=== PATIENT | male | born 1940 | race Caucasian/White ===

== ENCOUNTER → 2019-12-30 10:38 | Outpatient (BNVA) | payer MEDICARE, SELFPAY | PROVIDERS: PCP Internal Medicine; Referring Provider Internal Medicine; Visit Provider Internal Medicine Cardiovascular Disease | DX: I48.0 Paroxysmal atrial fibrillation (principal); I10 Essential (primary) hypertension | CPT/HCPCS: 93005; 99212 ==

== ENCOUNTER 2020-05-04 06:51 | Inpatient (IN) | payer MEDICARE, SELFPAY ==
[2020-05-04] VITALS (7 sets, daily range): BP systolic 110–179; BP diastolic 51–81; PULSE 67–108; RESP 16–18; TEMP 36.4–37.6; O2SAT 90–95; BMI 26.6; BMI 28.3
--- NOTE | ~2020-05-04 | XR_ITS ---
EXAMINATION: XR CHEST CLINICAL INFORMATION: sob COMPARISON: 05/04/2020 TECHNIQUE: Frontal view of the chest was obtained. FINDINGS: Prominent interstitial opacities are present in both lungs in the perihilar distribution primarily. Blunting of the left lateral costophrenic sulcus likely correspond to a trace effusion. Trace right pneumothorax. Subtle groundglass opacities are present in the perihilar regions. No appreciable right-sided pleural effusion. There is lucency underlying the right hemidiaphragm which is of uncertain etiology, possibly corresponding to pneumoperitoneum. Cardiac and mediastinal contours are normal. No acute osseous findings. XR/XR chest 1V IMPRESSION: Bilateral interstitial opacities with groundglass attenuation in the perihilar regions as can be seen with interstitial pulmonary edema. Bilateral pneumonia could also have this appearance. Trace right pneumothorax. Possible pneumoperitoneum underlying the right hemidiaphragm. Consider left lateral decubitus views of the abdomen for further assessment. This critical result was discussed by telephone with Dr. Nguyen at 05/09/2020 2:15 AM.
--- NOTE | ~2020-05-04 | XR_ITS ---
EXAMINATION: XR CHEST CLINICAL INFORMATION: Follow-up pneumothorax COMPARISON: Previous chest x-rays from earlier the same day TECHNIQUE: Frontal view of the chest was obtained. FINDINGS: There is a pigtail chest tube at the right lung apex. There is a large bore chest tube at the left lung apex. No residual pneumothorax is. There is bilateral chest wall emphysema, left greater than right. There is an endotracheal tube with tip 3 cm above the román. There is a right jugular line with tip projecting over the cavoatrial junction. There is a nasogastric tube that projects over the stomach. The tip is not seen. The cardiac and mediastinal contours are stable. There is diffuse mixed airspace and interstitial disease which appears increased from recent exams. No significant pleural effusion is seen. Bony structures are unremarkable. XR/XR chest 1V IMPRESSION: Bilateral chest tubes. No residual pneumothorax. Satisfactory position of endotracheal tube and right jugular line. Nasogastric tube projects over the proximal stomach, tip not seen. Bilateral airspace and interstitial opacities increased from previous exams.
--- NOTE | ~2020-05-04 | XR_ITS ---
EXAMINATION: XR CHEST CLINICAL INFORMATION: Post intubation COMPARISON: Same date at 1:32 AM TECHNIQUE: Frontal view of the chest was obtained. FINDINGS: ET tube terminates over the trachea 4.4 cm from the román. The right-sided pneumothorax has markedly increased in size as compared to prior. There is also a new large left pneumothorax which is not present on the prior study. Diffuse interstitial opacities are again seen in both lungs. Slight rightward shift the mediastinal contour is likely due to rotation of the patient. Tension pneumothorax is felt to be less likely but cannot be excluded on these images. Cardiac and mediastinal contours are otherwise normal. No pleural effusion. XR/XR chest 1V IMPRESSION: Marked enlargement of the right pneumothorax as compared to prior, now large. Left pneumothorax. ET tube terminates over the trachea 4.4 cm from the román.
--- NOTE | ~2020-05-04 | XR_ITS ---
EXAMINATION: XR CHEST CLINICAL INFORMATION: SOB. COMPARISON: Chest x-ray 1120 TECHNIQUE: Frontal view of the chest was obtained. FINDINGS: The lungs are hypoechoic expanded with patchy opacity in both lung bases likely atelectasis. Cannot exclude infiltrate. There is mild blunting of left CP angle likely from pleural thickening or effusion. The heart size and pulmonary vascularity is normal. No gross bony abnormality seen. XR/XR chest 1V IMPRESSION: Bibasilar haziness question infiltrate/atelectasis. Suspect small left pleural effusion/pleural thickening
--- NOTE | ~2020-05-04 | XR_ITS ---
EXAMINATION: XR CHEST CLINICAL INFORMATION: s/p chest tube placement COMPARISON: Same date at 5:26 AM TECHNIQUE: Frontal view of the chest was obtained. FINDINGS: ET tube terminates 3.6 cm from the román. Left-sided surgical chest tube is in place terminating at the left lung apex. There is a persistent large left pneumothorax with significant soft tissue emphysema overlying left chest wall. The left pneumothorax appears slightly increased as compared to prior. A pigtail chest tube is in place in the right long. There is a persistent large right pneumothorax. Mediastinal contour is midline and within normal limits in size. Diffuse interstitial and airspace opacities are present throughout both lungs. No acute osseous findings. XR/XR chest 1V IMPRESSION: Status post placement of bilateral chest tubes with persistent large bilateral pneumothoraces. The right pneumothorax is slightly improved as compared to prior. The left pneumothorax is slightly increased in size as compared to most recent prior. ET tube terminates 3.6 cm from the román.
--- NOTE | ~2020-05-04 | XR_ITS ---
EXAMINATION: XR CHEST CLINICAL INFORMATION: Line placement confirmation COMPARISON: Same day at 5:46 AM TECHNIQUE: Frontal view of the chest was obtained. FINDINGS: Endotracheal tube tip 2.8 cm above the román. Right internal jugular central venous catheter with tip at the distal SVC. Enteric tube tip is subdiaphragmatic, coursing off image. Left apically oriented chest tube is stable in positioning. Right apically oriented pigtail catheter is stable in positioning. EKG leads project over the chest. Similar to slightly decreased size of the moderately large right pneumothorax. Interval resolution of the left pneumothorax. Decreasing left axillary subcutaneous emphysema. Right axillary subcutaneous emphysema is better seen on the current study. Diffuse interstitial and airspace opacities throughout both lungs, unchanged. The cardiomediastinal silhouette is unchanged. No acute osseous abnormality. XR/XR chest 1V IMPRESSION: 1. Interval placement of a right internal jugular approach central venous catheter with tip at the distal SVC. Endotracheal tube tip 2.8 cm above the román. Other supportive devices as detailed above. 2. Stable to slightly decreased moderately large right pneumothorax and interval resolution of the left pneumothorax. 3. Unchanged diffuse interstitial and airspace opacities.
--- NOTE | ~2020-05-04 | XR_ITS ---
EXAMINATION: XR ABDOMEN KUB CLINICAL INDICATION: Question pneumoperitoneum COMPARISON: Chest radiograph from the same date TECHNIQUE: AP view of the abdomen. FINDINGS: The hemidiaphragms are depressed bilaterally due to the large pneumothoraces. No appreciable intraperitoneal free air, though sensitivity is somewhat limited by the large adjacent pneumothoraces. No appreciable intraperitoneal free air. Minimal intraluminal bowel gas is present within the abdomen. No acute osseous findings. XR/XR abdomen 1V IMPRESSION: No appreciable pneumoperitoneum, though sensitivity is somewhat limited by the large adjacent subpulmonic components of the bilateral pneumothoraces.
--- NOTE | ~2020-05-04 | XR_ITS ---
EXAMINATION: XR CHEST CLINICAL INFORMATION: new chest tube COMPARISON: Same date at 4:41 AM. TECHNIQUE: Frontal view of the chest was obtained. FINDINGS: ET tube terminates 3.4 cm from the román. A left-sided chest tube terminates at the left lung apex. The large left pneumothorax is decreased in size as compared to prior with new soft tissue emphysema along the left chest wall. Large right pneumothorax is unchanged. Prominent interstitial opacities are again seen in both lungs. The cardiac and mediastinal contours are midline. XR/XR chest 1V IMPRESSION: Decreased size of the large left pneumothorax status post left-sided chest tube placement. ET tube terminates 3.4 cm from the román.
--- NOTE | 2020-05-04 07:00 | PC.NURSE ---
This Nurse working as Triage Nurse. Pt presented to ED with worsening SOB and Hx of A-fib. When triaging pt, SP02 found to be 70% on room air. Charge nurse notified and patient moved to room 2 in main ED.
--- NOTE | 2020-05-04 07:10 | ECG_ITS ---
Test Reason : SOB Blood Pressure : / mmHG Vent. Rate : 094 BPM Atrial Rate : 094 BPM P-R Int : 138 ms QRS Dur : 078 ms QT Int : 284 ms P-R-T Axes : 096 022 055 degrees QTc Int : 355 ms Normal sinus rhythm Low voltage QRS Nonspecific ST and T wave abnormality Abnormal ECG When compared with ECG of 11-MAY-2007 12:56, Vent. rate has increased BY 45 BPM QRS voltage has decreased Nonspecific T wave abnormality now evident in Lateral leads QT has shortened Referred By: Vanessa Ortiz Electronically Signed By:RAKESH CONSTANTINO MD
--- NOTE | 2020-05-04 07:14 | ED.URI ---
HPI - URI/Sore Throat General Chief Complaint: Dyspnea Stated Complaint: DIFF BREATHING Time Seen by Provider: 05/04/20 07:10 History of Present Illness HPI Narrative: Patient is an 80-year-old male with a history of question AFib. No history of COPD. Positive history of coughing upper respiratory symptoms for about 10 days. Patient son was recently diagnosed with coronavirus. He did not get the vaccine yet. Positive generalized malaise. Positive coughing. Nonproductive in nature. Increasing shortness of breath over the last week. Patient presented to the emergency department. No history of being on oxygen. No chest pain. No diaphoresis. Patient from home. No orthopnea. Positive leg swelling that is chronic. No changes in medication. History of hypertension. No travel history. No history of congestive heart failure. MD elicited complaint: cough Onset (ago): day(s) Consistency: progressively worsening Severity: moderate Related Data Home Medications Medication Instructions Recorded Confirmed aspirin 81 mg tablet,delayed 81 mg PO DAILY 12/30/19 release levothyroxine 50 mcg tablet 50 mcg PO DAILY 12/30/19 Previous Rx's Medication Instructions Recorded amiodarone 200 mg tablet 100 mg PO DAILY #20 tab 01/05/20 lisinopril 5 mg tablet 5 mg PO DAILY #30 tab 01/05/20 Allergies Allergy/AdvReac Type Severity Reaction Status Date / Time No Known Allergies Allergy Mild N/A Unverified 11/10/19 15:18 Review of Systems Review of Systems: Constitutional: No Weight loss, No Fever, No Chills, No Night Sweats, No Fatigue, No Malaise ENT/Mouth: No Hearing loss, No Ear Pain, No Nasal Congestion, No Sinus Pain, No Hoarseness, No sore throat, No Rhinorrhea, No Swallowing Difficulty Eyes: No Eye Pain, No Swelling, No Redness, No Foreign Body, No Discharge, No Vision Changes Cardiovascular: No Chest Pain, positive SOB, No Dyspnea on Exertion, No Orthopnea, No Edema, No Palpitations Respiratory: Positive Cough, No Sputum, No Wheezing, No Smoke Exposure, positive Dyspnea Gastrointestinal: No Nausea, No Vomiting, No Diarrhea, No Constipation, No abdominal Pain, No Hematochezia, No Melena Genitourinary: no irregular bleeding, No Dysuria, No Urinary Frequency, No Hematuria, No Urinary Incontinence, No Urgency, No Flank Pain, No Urinary Flow Changes, No Hesitancy Musculoskeletal: No joint pain, No Myalgias, No Joint Swelling Skin: No Skin Lesions, No rash Neuro: No Weakness, No Numbness, No Paresthesias, No Loss of Consciousness, No Dizziness, No Headache Psych: No Anxiety/Panic, No Depression, No SI/HI/AH/VH, No Social Issues, Heme/Lymph: No Bruising, No Bleeding,No Lymphadenopathy Endocrine: No Polyuria, No Polydipsia, No Temperature Intolerance [facility] Past Medical History Attestation statement: The following information was validated with the patient. Medical History HTN (hypertension) Paroxysmal atrial fibrillation Surgical History Hx of colonoscopy Family History Family History Father No problems noted. Mother No problems noted. Social History Social History Smoking Status: Never smoker Advance Directives: Yes Advance Directives Information Provided: Yes Advance Directives on File: No Physical Exam Vital Signs: Vital Signs: Last Vital Signs Temp 99.6 F 05/04/20 08:38 Pulse 86 05/04/20 08:38 Resp 18 05/04/20 08:38 BP 122/56 L 05/04/20 08:38 Pulse Ox 95 05/04/20 08:38 Body Mass Index 26.6 Appearance: Alert. Oriented X3. No acute distress. Eyes: Pupils equal, round and reactive to light. ENT: Pharynx normal. Neck: Normal inspection. Neck supple. No lymph nodes noted. No crepitus CVS: Normal heart rate and rhythm. Pulses normal. Normal S1 and S2 Respiratory: Diminished breath sounds bilaterally Abdomen: Soft and nontender. No rigidity. No distention. good BS x4 Skin: Skin warm and dry. Normal skin color. Normal skin turgor. Extremities: 2+ pitting edema bilaterally. Neurovascular intact to all extremities. No Lacerations. No Rash Neuro: Oriented X 3. No motor deficit. No sensory deficit. Moving all extermities. No slurred speech MDM - URI/Sore Throat MDM Narrative Medical decision making narrative: Positive upper respiratory symptoms. Patient's O2 sat dropped into the 70s. Requiring 40-50% Venti mask. Chest x-ray consistent with having ground-glass appearance of coronavirus. Patient's coronavirus test was positive. Patient's son also had coronavirus 3 weeks ago. Likely the cause of patient's shortness of breath. Started on Decadron. Patient did have an elevated lactate. Will give IV fluid. Will monitor carefully. Antibiotic was given. Currently in stable condition awaiting admissions. Lab Data Result diagrams: 05/04/20 07:55 05/04/20 07:55 Labs: Lab Results 05/04/20 05/04/20 05/04/20 Range/Units 07:55 07:55 07:55 WBC 4.7 L (4.8-10.8) X10*3/uL RBC 4.20 L (4.60-5.80) X10*6/uL Hgb 14.5 (14.0-18.0) g/dl Hct 42.5 (42-52) % MCV 101.2 H (80-98) fL MCH 34.5 H (27.0-33.0) pg MCHC 34.1 (31.0-36.0) g/dl RDW 15.9 (11.0-16.0) % Plt Count 107 L (160-400) X10*3/uL MPV 10.6 (9.4-12.4) fL Immature Gran % (Auto) 0.6 H (0.0-0.4) % Neut % (Auto) 77.0 H (45-73) % Lymph % (Auto) 12.4 L (20-40) % Saline % (Auto) 9.8 (2-11) % Eos % (Auto) 0.0 (0-4) % Baso % (Auto) 0.2 (0-2) % Lymph # (Auto) 0.6 L (1.2-4.9) X10*3/uL Saline # (Auto) 0.5 (0.1-1.2) X10*3/uL Eos # (Auto) 0.0 (0.0-0.4) X10*3/uL Baso # (Auto) 0.0 (0.0-0.2) X10*3/uL Abs Immat Gran (auto) 0.03 (0.00-0.03) X10*3/uL Absolute Neuts (auto) 3.6 (2.0-8.3) X10*3/uL Absolute Nucleated RBC 0.000 (0.0-0.012) X10*3/uL Nucleated RBC % (auto) 0.0 (0.0-0.2) /100WBC Smear Tech's Comments VERIFIED PT 17.5 H (10.8-13.0) SEC INR 1.5 H (0.9-1.1) D-Dimer 807 NG/ML Sodium 139 (135-145) mmol/L Potassium 4.0 (3.3-5.1) mmol/L Chloride 105 (96-108) mmol/L Carbon Dioxide 23 (22-29) mmol/L Anion Gap 15 (12-20) BUN 13 (9-16) mg/dL Creatinine 0.83 (0.5-1.4) mg/dL Estim Creat Clear Calc 65.2 Estimated GFR > 60 Random Glucose 94 (60-115) mg/dL Lactic Acid (0.5-2.0) mmol/L Calcium 7.7 L (8.4-10.2) mg/dL Troponin I High Sens (<3.5-35.0) ng/L C-Reactive Protein 2.63 H (< or = 0.50) mg/dL B-Natriuretic Peptide (<100) pg/mL Coronavirus (PCR) (Negative) Influenza Type A (PCR) (Negative) Influenza Type B (PCR) (Negative) RSV RNA Qual (PCR) (Negative) 05/04/20 05/04/20 05/04/20 Range/Units 07:55 07:55 07:55 WBC (4.8-10.8) X10*3/uL RBC (4.60-5.80) X10*6/uL Hgb (14.0-18.0) g/dl Hct (42-52) % MCV (80-98) fL MCH (27.0-33.0) pg MCHC (31.0-36.0) g/dl RDW (11.0-16.0) % Plt Count (160-400) X10*3/uL MPV (9.4-12.4) fL Immature Gran % (Auto) (0.0-0.4) % Neut % (Auto) (45-73) % Lymph % (Auto) (20-40) % Saline % (Auto) (2-11) % Eos % (Auto) (0-4) % Baso % (Auto) (0-2) % Lymph # (Auto) (1.2-4.9) X10*3/uL Saline # (Auto) (0.1-1.2) X10*3/uL Eos # (Auto) (0.0-0.4) X10*3/uL Baso # (Auto) (0.0-0.2) X10*3/uL Abs Immat Gran (auto) (0.00-0.03) X10*3/uL Absolute Neuts (auto) (2.0-8.3) X10*3/uL Absolute Nucleated RBC (0.0-0.012) X10*3/uL Nucleated RBC % (auto) (0.0-0.2) /100WBC Smear Tech's Comments PT (10.8-13.0) SEC INR (0.9-1.1) D-Dimer NG/ML Sodium (135-145) mmol/L Potassium (3.3-5.1) mmol/L Chloride (96-108) mmol/L Carbon Dioxide (22-29) mmol/L Anion Gap (12-20) BUN (9-16) mg/dL Creatinine (0.5-1.4) mg/dL Estim Creat Clear Calc Estimated GFR Random Glucose (60-115) mg/dL Lactic Acid 3.6 H* (0.5-2.0) mmol/L Calcium (8.4-10.2) mg/dL Troponin I High Sens 18.5 (<3.5-35.0) ng/L C-Reactive Protein (< or = 0.50) mg/dL B-Natriuretic Peptide 146 H (<100) pg/mL Coronavirus (PCR) POSITIVE A (Negative) Influenza Type A (PCR) NEGATIVE (Negative) Influenza Type B (PCR) NEGATIVE (Negative) RSV RNA Qual (PCR) NEGATIVE (Negative) Critical Care Time Critical Care Time Critical Care Time: Yes Total Critical Care Time: 40 Attestation: I have personally provided 40 minutes of critical care time exclusive of time spent on separately billable procedures. Time includes review of lab data, radiology results, discussion with consultants, and monitoring for potential decompensation. Interventions were performed as documented above Discharge Plan Discharge Clinical Impression: COVID-19 Patient Disposition: Admitted As Inpatient
[2020-05-04] MEDS: Acetaminophen 325 MG TABLET 650 MG PO (08:07)
[2020-05-04 08:09] LABS: Basophils Percent Auto 0.2 % (0-2); Lymphocytes Absolute Auto 0.6 X10*3/uL (1.2-4.9); MANUAL DIFF FLAG SCAN; Mean Corpuscular HGB Conc 34.1 g/dl (31.0-36.0); Mean Platelet Volume 10.6 fL (9.4-12.4); PLT CLUMP 1; Red Cell Distribution Width 15.9 % (11.0-16.0); SCAN SMEAR FLAG 1
[2020-05-04 08:11] LABS: Hematocrit 42.5 % (42-52); Hemoglobin 14.5 g/dl (14.0-18.0); Imm Gran Abs Auto 0.03 X10*3/uL (0.00-0.03); Imm Gran Pct Auto 0.6 % (0.0-0.4); Lymphocytes Percent Auto 12.4 % (20-40); Mean Corpuscular Hemoglobin 34.5 pg (27.0-33.0); Mean Corpuscular Volume 101.2 fL (80-98); Monocytes Absolute Auto 0.5 X10*3/uL (0.1-1.2); Monocytes Percent Auto 9.8 % (2-11); Neutrophils Absolute Auto 3.6 X10*3/uL (2.0-8.3); Platelet Count 107 X10*3/uL (160-400); White Blood Count 4.7 X10*3/uL (4.8-10.8)
[2020-05-04 08:16] LABS: INTERNATIONAL NORM RATIO 1.5 (0.9-1.1); Prothrombin Time 17.5 SEC (10.8-13.0)
[2020-05-04 08:19] LABS: D Dimer 807 NG/ML
[2020-05-04 08:36] LABS: Lactic Acid 3.6 mmol/L (0.5-2.0)
[2020-05-04 08:39] LABS: Anion Gap 15 (12-20); Blood Urea Nitrogen 13 mg/dL (9-16); C Reactive Protein 2.63 mg/dL (< or = 0.50); Calcium 7.7 mg/dL (8.4-10.2); Carbon Dioxide 23 mmol/L (22-29); Chloride 105 mmol/L (96-108); Creatinine Clr Calc Pharmacy 65.2; Estimated Glomerular Filt Rate > 60; Glucose Random 94 mg/dL (60-115); Sodium 139 mmol/L (135-145)
[2020-05-04 08:46] LABS: Influenza A PCR NEGATIVE (Negative); Influenza B PCR NEGATIVE (Negative); Resp Syncy Virus RNA Qual PCR NEGATIVE (Negative); SARS COV2 PCR INHOUSE POSITIVE (Negative)
[2020-05-04 08:47] LABS: B Type Natriuretic Peptide 146 pg/mL (<100); Troponin-I High Sensitivity 18.5 ng/L (<3.5-35.0)
[2020-05-04 09:04] LABS: SLIDE REVIEW VERIFIED
[2020-05-04] MEDS: cefTRIAXone sodium 1 GM in 0.9 % Sodium Chloride 50 ML IV (09:09)
[2020-05-04] MEDS: 0.9 % Sodium Chloride 1,000 ML 999 ML IV ×3 (09:09→13:12)
[2020-05-04 10:03] LABS: Reflex Lactate? Lactic Acid Added
[2020-05-04 12:17] LABS: ~Lactic Acid-LAB USE ONLY 1.6 mmol/L (0.5-2.0)
[2020-05-04 14:31] LABS: Lactate Dehydrogenase 356 U/L (118-273)
[2020-05-04 14:53] LABS: Ferritin 339 ng/mL (20-250)
--- NOTE | 2020-05-04 15:11 | PM.IMHP ---
History of Present Illness Date of Service: 05/04/20 Chief Complaint: Shortness of breath This is an 80-year-old male with a history of atrial fibrillation, hypertension, hypothyroidism who presents to the emergency department with shortness of breath. His son has been sick for the past 3 weeks and was diagnosed with coronavirus. For the past week to week and a half the patient reports progressively worsening shortness of breath with intermittent cough. Every day he thought his breathing would get better, but today he realized it was time to come to the hospital. He denies any associated fever or chills. He has had decreased appetite. On arrival to the emergency department he was noted to be hypoxic with oxygen saturation in the 70s on room air. His coronavirus test was positive. Chest x-ray showed bibasilar haziness question infiltrate. Lactic acid was elevated at 3.6. Ferritin was 339, LDH 356, CRP 2.63. He received a dose of IV ceftriaxone in the emergency department and the decision was made to admit him for further management Review of Systems Review of Systems: Yes all other systems are reviewed and are negative Constitutional: Constitutional: Denies chills and Denies fever(s) Cardiovascular: Cardiovascular: Denies chest pain and Reports dyspnea Respiratory: Respiratory: Reports cough and Reports dyspnea Gastrointestinal: Gastrointestinal: Denies abdominal pain, Denies diarrhea, Denies nausea and Denies vomiting [facility] Medical History (Updated 05/04/20 @ 15:32 by JOHN Bermudez) HTN (hypertension) Hypothyroidism Paroxysmal atrial fibrillation Functional capacity: independent ambulation Family History Father No problems noted. Mother No problems noted. Family history: reviewed and not pertinent Surgical History Hx of colonoscopy Social History (Updated 05/04/20 @ 15:32 by JOHN Bermudez) Household Members: Children Alcohol intake: never Smoking Status: Never smoker Use of substances other than those prescribed or required for medical reasons: No Advance Directives: Yes Advance Directives Information Provided: Yes Advance Directives on File: No Meds Allergies Allergy/AdvReac Type Severity Reaction Status Date / Time No Known Allergies Allergy Mild N/A Unverified 11/10/19 15:18 Active Medications: Current Medications Generic Name Dose Route Start Last Admin Trade Name Yfnq PRN Reason Stop Dose Admin Dexamethasone Sodium Phosphate 6 mg 05/04/20 15:15 Dexamethasone Sod Phosphate/Pf 10 Mg/Ml Vial IVPUSH DAILY [facility] Sodium Chloride 1,000 mls @ 999 mls/hr 05/04/20 08:45 05/04/20 14:34 Ns IV Not Given .Q1H1M [facility] Pharmacy Consult 1 each 05/04/20 14:53 Consult Rx Perform Med Rec MISCELLANE ONCE PRN Consult order Home Medications Medication Instructions Recorded Confirmed Last Taken Type aspirin 81 mg tablet,delayed 81 mg PO DAILY 12/30/19 05/04/20 Unknown History release levothyroxine 50 mcg tablet 50 mcg PO DAILY 12/30/19 05/04/20 05/04/20 History Physical Exam Vital Signs and Narrative: Vital Signs: Last Vital Signs Temp 99.0 F 05/04/20 11:13 Pulse 67 05/04/20 12:50 Resp 18 05/04/20 12:50 BP 120/78 05/04/20 12:50 Pulse Ox 95 05/04/20 12:50 Body Mass Index 26.6 Const: General: no acute distress, alert, awake and tired appearing Orientation/consciousness: patient oriented x3 HENMT: Head: Yes normocephalic and Yes atraumatic Eyes: Sclerae: sclerae normal Chest: Chest palpation & inspection: normal inspection of the chest Resp: Effort & Inspection: normal respiratory effort and no respiratory distress Cardio: Rate: regular rate Rhythm: regular rhythm GI: Palpation (GI): Soft to palpation and nontender Skin: General skin exam: no rashes or lesions noted Neuro: General: patient oriented x3 Cranial nerves: Yes CN's II-XII intact bilaterally and Yes Bilaterally intact EOM present Extrem: Other: dry skin, 1+ edema Results Labs CBC and Chem 7: 05/04/20 07:55 05/04/20 07:55 Labs: Laboratory Results - last 24 hr 05/04/20 05/04/20 05/04/20 07:55 07:55 07:55 MCV 101.2 H MCH 34.5 H MCHC 34.1 RDW 15.9 Plt Count 107 L MPV 10.6 Immature Gran % (Auto) 0.6 H Neut % (Auto) 77.0 H Lymph % (Auto) 12.4 L [place] % (Auto) 9.8 Eos % (Auto) 0.0 Baso % (Auto) 0.2 Lymph # (Auto) 0.6 L [place] # (Auto) 0.5 Eos # (Auto) 0.0 Baso # (Auto) 0.0 Abs Immat Gran (auto) 0.03 Absolute Neuts (auto) 3.6 Absolute Nucleated RBC 0.000 Nucleated RBC % (auto) 0.0 Smear Tech's Comments VERIFIED PT 17.5 H INR 1.5 H D-Dimer 807 Anion Gap 15 Estim Creat Clear Calc 65.2 Estimated GFR > 60 Random Glucose 94 Lactic Acid Lactic Acid Fup @ 2Hr Calcium 7.7 L Ferritin 339 H Lactate Dehydrogenase 356 H Troponin I High Sens C-Reactive Protein 2.63 H B-Natriuretic Peptide Coronavirus (PCR) Influenza Type A (PCR) Influenza Type B (PCR) RSV RNA Qual (PCR) 05/04/20 05/04/20 05/04/20 07:55 07:55 07:55 MCV MCH MCHC RDW Plt Count MPV Immature Gran % (Auto) Neut % (Auto) Lymph % (Auto) [place] % (Auto) Eos % (Auto) Baso % (Auto) Lymph # (Auto) [place] # (Auto) Eos # (Auto) Baso # (Auto) Abs Immat Gran (auto) Absolute Neuts (auto) Absolute Nucleated RBC Nucleated RBC % (auto) Smear Tech's Comments PT INR D-Dimer Anion Gap Estim Creat Clear Calc Estimated GFR Random Glucose Lactic Acid 3.6 H* Lactic Acid Fup @ 2Hr Calcium Ferritin Lactate Dehydrogenase Troponin I High Sens 18.5 C-Reactive Protein B-Natriuretic Peptide 146 H Coronavirus (PCR) POSITIVE A Influenza Type A (PCR) NEGATIVE Influenza Type B (PCR) NEGATIVE RSV RNA Qual (PCR) NEGATIVE 05/04/20 11:50 MCV MCH MCHC RDW Plt Count MPV Immature Gran % (Auto) Neut % (Auto) Lymph % (Auto) [place] % (Auto) Eos % (Auto) Baso % (Auto) Lymph # (Auto) [place] # (Auto) Eos # (Auto) Baso # (Auto) Abs Immat Gran (auto) Absolute Neuts (auto) Absolute Nucleated RBC Nucleated RBC % (auto) Smear Tech's Comments PT INR D-Dimer Anion Gap Estim Creat Clear Calc Estimated GFR Random Glucose Lactic Acid Lactic Acid Fup @ 2Hr 1.6 Calcium Ferritin Lactate Dehydrogenase Troponin I High Sens C-Reactive Protein B-Natriuretic Peptide Coronavirus (PCR) Influenza Type A (PCR) Influenza Type B (PCR) RSV RNA Qual (PCR) Imaging Radiologist's Impressions: Impressions Chest X-Ray 05/04/20 07:10 IMPRESSION: Bibasilar haziness question infiltrate/atelectasis. Suspect small left pleural effusion/pleural thickening Assessment and Plan (1) COVID-19: Status: Acute (2) Paroxysmal atrial fibrillation: Status: Acute (3) HTN (hypertension): Status: Acute This is an 80-year-old male with history of PAF not on anticoagulation, hypothyroidism, hypertension who presents to the emergency department with 7-10 days of progressively worsening shortness of breath found to have COVID-19 and hypoxia Acute hypoxic respiratory failure Pneumonia secondary to COVID-19 virus -supplemental oxygen as needed -IV dexamethasone -supportive care PAF -Continue amiodarone, aspirin -not on anticoagulation due to patient choice Hypothyroidism Continue Synthroid Hypertension Blood pressure controlled Continue lisinopril DVT prophylaxis-Lovenox Code status-full code This case was discussed with Dr. Lei
--- NOTE | 2020-05-04 16:21 | PM.EVENT ---
Event Note Date of Service: 05/04/20 Event Note: the patient was seen and evaluated with JOHN Saenz. I agree with her note, assessment and plan with the following. In summary, an 80 years old male with PMH of AFib, HTN hypothyroidism who presents to hospital with worsening shortness of breath. He reports that his son has been sick with COVID 19 for the last 3 weeks and for himself it has been a week or so started to have symptoms of shortness of breath coughing. He noticed that he is not eating much and getting weaker. He presented to the hospital today and found to be hypoxic in 70s on room air. Tested positive for COVID a chest x-ray showed bilateral infiltrate. Requiring Venturi mask for oxygenation at this point. Admitted for further evaluation treatment. Acute hypoxic respiratory failure COVID-19 infection Start IVs dexamethasone Oxygen supplement, to wean down as tolerated To get ID evaluation for remdesivir Encourage PO intake Rest of evaluations by PA note.
[2020-05-04] MEDS: 0.9 % Sodium Chloride Flush 3 ML SYRINGE IVFLUSH (19:56)
[2020-05-05] VITALS (8 sets, daily range): BP systolic 134–144; BP diastolic 65–70; PULSE 71–87; RESP 18–25; TEMP 36.3–36.8; O2SAT 86–96
[2020-05-05] MEDS: Levothyroxine Sodium 50 MCG TABLET PO (06:46)
[2020-05-05 07:03] LABS: Imm Gran Abs Auto 0.01 X10*3/uL (0.00-0.03); Imm Gran Pct Auto 0.6 % (0.0-0.4); MANUAL DIFF FLAG SCAN; PLT CLUMP 1; Red Cell Distribution Width 15.4 % (11.0-16.0); SCAN SMEAR FLAG 1
[2020-05-05 07:05] LABS: Hematocrit 37.1 % (42-52); Hemoglobin 12.4 g/dl (14.0-18.0); Lymphocytes Absolute Auto 0.3 X10*3/uL (1.2-4.9); Mean Corpuscular HGB Conc 33.4 g/dl (31.0-36.0); Mean Corpuscular Hemoglobin 33.8 pg (27.0-33.0); Mean Corpuscular Volume 101.1 fL (80-98); Mean Platelet Volume 11.4 fL (9.4-12.4); Monocytes Absolute Auto 0.1 X10*3/uL (0.1-1.2); Monocytes Percent Auto 6.7 % (2-11); Neutrophils Absolute Auto 1.2 X10*3/uL (2.0-8.3); Neutrophils Percent Auto 73.7 % (45-73); Red Blood Count 3.67 X10*6/uL (4.60-5.80)
[2020-05-05 07:21] LABS: White Blood Count 1.6 X10*3/uL (4.8-10.8)
[2020-05-05 07:22] LABS: Platelet Count 63 X10*3/uL (160-400)
[2020-05-05 07:43] LABS: SLIDE REVIEW VERIFIED
[2020-05-05 07:48] LABS: Anion Gap 10 (12-20); Blood Urea Nitrogen 14 mg/dL (9-16); Calcium 7.3 mg/dL (8.4-10.2); Carbon Dioxide 25 mmol/L (22-29); Chloride 106 mmol/L (96-108); Creatinine Clr Calc Pharmacy 88.5; Estimated Glomerular Filt Rate > 60; Glucose Random 117 mg/dL (60-115); Potassium 4.3 mmol/L (3.3-5.1); Sodium 137 mmol/L (135-145)
[2020-05-05] MEDS: 0.9 % Sodium Chloride Flush 3 ML SYRINGE IVFLUSH ×3 (08:40→23:48)
[2020-05-05] MEDS: Amiodarone HCL 200 MG TABLET 100 MG PO (08:40)
[2020-05-05] MEDS: lisinopriL 5 MG TABLET PO (08:40)
[2020-05-05] MEDS: Aspirin Enteric Coated 81 MG TABLET.DR PO (08:41)
--- NOTE | 2020-05-05 12:44 | HO.PM.IMPN ---
Subjective Subjective Date of Service: 05/05/20 Interval History: the patient was seen and evaluated this morning Laying in bed, feels tired and lethargic, not in distress toe Increased oxygen requirement overnight Denies any fever, chills or shortness of breath No reported other overnight events. Systemic review: No fever, chills but increase weakness, good appetite No chest pain, palpitation Mild shortness of breath with increased oxygen requirement No abdominal pain, nausea or vomiting No urinary symptoms No any rash or wounds Physical Exam Vital Signs: Vital Signs: Last Vital Signs Temp 97.4 F 05/05/20 12:00 Pulse 83 05/05/20 12:00 Resp 25 H 05/05/20 12:00 BP 144/69 H 05/05/20 12:00 Pulse Ox 87 L 05/05/20 12:00 Body Mass Index 28.3 Const: Other: Constitutional : Alert, oriented, not in distress Neck : Normal inspection, Supple Cardiovascular : RRR, S1 S2, no lower extremity edema Respiratory : Chest wall moving bilaterally, does not seem in distress, on 15 L nasal cannula with sats around 90 and dropping Gastrointestinal: soft, lax, Normal bowel sounds, Non tender Skin : Warm/Dry, No rash Neurological : Alert & oriented x3, No focal deficit Objective Data Current Medications Generic Name Dose Route Start Last Admin Trade Name Freq PRN Reason Stop Dose Admin Acetaminophen 650 mg 05/04/20 15:37 Acetaminophen 325 Mg Tablet PO Q6H PRN Pain, Mild (Pain Scale 1-3) Albuterol Sulfate 2 puff 05/04/20 15:37 Albuterol Sulfate 90 Mcg 8 Gm Inhaler INHALE RQ4H PRN Shortness of Breath Amiodarone HCl 100 mg 05/05/20 09:00 05/05/20 08:40 Amiodarone Hcl 200 Mg Tablet PO 100 mg DAILY [facility] Administration Aspirin 81 mg 05/05/20 09:00 05/05/20 08:41 Aspirin Enteric Coated 81 Mg Tablet. PO 81 mg DAILY [facility] Administration Dexamethasone Sodium Phosphate 6 mg 05/04/20 15:15 05/05/20 08:40 Dexamethasone Sod Phosphate/Pf 10 Mg/Ml Vial IVPUSH 6 mg DAILY [facility] Administration Docusate Sodium 100 mg 05/04/20 15:37 Docusate Sodium 100 Mg Capsule PO DAILY PRN Constipation Enoxaparin Sodium 40 mg 05/04/20 16:00 05/04/20 16:51 Enoxaparin Sodium 40 Mg/0.4 Ml Syringe SUBCUT Not Given Q24H [facility] Doxycycline Hyclate 100 mg/ 250 mls @ 166.67 mls/hr 05/05/20 12:30 Sodium Chloride IV Q12H [facility] Levothyroxine Sodium 50 mcg 05/05/20 06:30 05/05/20 06:46 Levothyroxine Sodium 50 Mcg Tablet PO 50 mcg DAILY@0630 [facility] Administration Lisinopril 5 mg 05/05/20 09:00 05/05/20 08:40 Lisinopril 5 Mg Tablet PO 5 mg DAILY [facility] Administration Protocol Ondansetron HCl 4 mg 05/04/20 15:37 Ondansetron Hcl 4 Mg/2 Ml Vial IVPUSH Q8H PRN Nausea and Vomiting Pharmacy Consult 1 each 05/04/20 14:53 Consult Rx Perform Med Rec MISCELLANE ONCE PRN Consult order Sodium Chloride 3 ml 05/04/20 16:00 05/05/20 08:40 0.9 % Sodium Chloride Flush 3 Ml Syringe IVFLUSH 3 ml QSHIFT [facility] Administration Labs CBC & Chem 7: 05/05/20 06:04 05/05/20 06:04 Microbiology Microbiology Results: Microbiology 05/04/20 08:42 Blood - Venous Blood Culture - Preliminary No growth after 24 hours. 05/04/20 07:55 Blood - Venous Blood Culture - Preliminary Assessment and Plan (1) COVID-19: Status: Acute (2) Paroxysmal atrial fibrillation: Status: Acute (3) HTN (hypertension): Status: Acute Assessment and Plan: an 80 years old male with PMH of AFib, HTN hypothyroidism who presents to hospital with worsening shortness of breath. found to have COVID-19 and hypoxia Acute hypoxic respiratory failure COVID-19 infection Continue to drop his saturations below 90 on 15 L of oxygen Continue IVs dexamethasone Oxygen supplement, to increase to INR P or high-flow To get ID evaluation for remdesivir Encourage PO intake Positive blood culture One bottle growing gram-positive cocci Cover with doxycycline S patient is not septic or spiking fevers To repeat blood cultures pending final sensitivity Neutropenia, thrombocytopenia Seems to be chronic with acute worsening Likely secondary to the infection No need for transfusion of platelets at this point Monitor CBC PAF Continue amiodarone, aspirin not on anticoagulation due to patient choice Hypothyroidism Continue Synthroid Hypertension Blood pressure controlled Continue lisinopril DVT prophylaxis Lovenox Code status-full code
[2020-05-05] MEDS: Doxycycline Hyclate 100 MG in 0.9 % Sodium Chloride 250 ML 166.67 MG IV (13:44)
--- NOTE | 2020-05-05 14:59 | W.PM.IDCN ---
History of Present Illness Data of Consult Service Date: 05/05/20 Requesting physician: Sohan Lei Primary Care Provider: Maxi Huynh MD [facility] Reason for consult: COVID He has shortness of breath for a week He has positive COVID diagnosis He has no purulent sputum He didnt get vaccine since he doesnt have a computer he says His son who works for [employer] on the conveyer line he says caught COVID at work He is on NRB Review of Systems Review of Systems: Yes all other systems are reviewed and are negative [facility] Past Medical History Medical History HTN (hypertension) Hypothyroidism Paroxysmal atrial fibrillation Functional capacity: independent ambulation Family History Family History Father No problems noted. Mother No problems noted. Family history: reviewed and not pertinent Surgical History Surgical History Hx of colonoscopy Social History Social History Household Members: Children Housing: House Do you presently have visiting nurse or other home services: No Alcohol intake: never Smoking Status: Never smoker Use of substances other than those prescribed or required for medical reasons: No Currently Displaying Signs/Symptoms of Drug Intoxication Withdrawal: No Have you been hit, kicked, punched, or otherwise hurt by someone within the past year? If so, by whom?: No Do you feel safe in your current relationship?: No Current Relationship Is there a partner from a previous relationship who is making you feel unsafe now?: No Are you made to feel afraid or neglected: No Advance Directives: Yes Advance Directives Information Provided: Yes Advance Directives on File: No Advance Directives Date on File: 05/04/20 Do you have thoughts of harming others: None Do you have a plan to hurt others: No Plan Recently lost weight without trying: No Meds Allergies Allergy/AdvReac Type Severity Reaction Status Date / Time No Known Allergies Allergy Mild N/A Unverified 11/10/19 15:18 Active Medications: Current Medications Generic Name Dose Route Start Last Admin Trade Name Freq PRN Reason Stop Dose Admin Acetaminophen 650 mg 05/04/20 15:37 Acetaminophen 325 Mg Tablet PO Q6H PRN Pain, Mild (Pain Scale 1-3) Albuterol Sulfate 2 puff 05/04/20 15:37 Albuterol Sulfate 90 Mcg 8 Gm Inhaler INHALE RQ4H PRN Shortness of Breath Amiodarone HCl 100 mg 05/05/20 09:00 05/05/20 08:40 Amiodarone Hcl 200 Mg Tablet PO 100 mg DAILY [facility] Administration Aspirin 81 mg 05/05/20 09:00 05/05/20 08:41 Aspirin Enteric Coated 81 Mg Tablet.Dr PO 81 mg DAILY [facility] Administration Dexamethasone Sodium Phosphate 6 mg 05/04/20 15:15 05/05/20 08:40 Dexamethasone Sod Phosphate/Pf 10 Mg/Ml Vial IVPUSH 6 mg DAILY [facility] Administration Docusate Sodium 100 mg 05/04/20 15:37 Docusate Sodium 100 Mg Capsule PO DAILY PRN Constipation Enoxaparin Sodium 40 mg 05/04/20 16:00 05/04/20 16:51 Enoxaparin Sodium 40 Mg/0.4 Ml Syringe SUBCUT Not Given Q24H [facility] Levothyroxine Sodium 50 mcg 05/05/20 06:30 05/05/20 06:46 Levothyroxine Sodium 50 Mcg Tablet PO 50 mcg DAILY@0630 [facility] Administration Lisinopril 5 mg 05/05/20 09:00 05/05/20 08:40 Lisinopril 5 Mg Tablet PO 5 mg DAILY [facility] Administration Protocol Ondansetron HCl 4 mg 05/04/20 15:37 Ondansetron Hcl 4 Mg/2 Ml Vial IVPUSH Q8H PRN Nausea and Vomiting Pharmacy Consult 1 each 05/04/20 14:53 Consult Rx Perform Med Rec MISCELLANE ONCE PRN Consult order Sodium Chloride 3 ml 05/04/20 16:00 05/05/20 08:40 0.9 % Sodium Chloride Flush 3 Ml Syringe IVFLUSH 3 ml QSHIFT [facility] Administration Home Medications Medication Instructions Recorded Confirmed Last Taken Type aspirin 81 mg tablet,delayed 81 mg PO DAILY 12/30/19 05/04/20 Unknown History release levothyroxine 50 mcg tablet 50 mcg PO DAILY 12/30/19 05/04/20 05/04/20 History Physical Exam Vital Signs: Vital Signs: Last Vital Signs Temp 97.4 F 05/05/20 12:00 Pulse 83 05/05/20 12:00 Resp 25 H 05/05/20 12:00 BP 144/69 H 05/05/20 12:00 Pulse Ox 87 L 05/05/20 12:00 Body Mass Index 28.3 Const: General: cooperative Resp: Effort & Inspection: abnormal respiratory pattern Cardio: Rate: regular rate Rhythm: regular rhythm GI: Palpation (GI): nontender Skin: General skin exam: no rashes or lesions noted Results Labs CBC & Chem 7: 05/05/20 06:04 05/05/20 06:04 Labs: Short CBC 05/05/20 Range/Units 06:04 WBC 1.6 L (4.8-10.8) X10*3/uL Hgb 12.4 L (14.0-18.0) g/dl Hct 37.1 L (42-52) % Plt Count 63 L D (160-400) X10*3/uL BMP 05/05/20 06:04 Sodium 137 Potassium 4.3 Chloride 106 Carbon Dioxide 25 BUN 14 Creatinine 0.67 Calcium 7.3 L Microbiology Microbiology Results: Microbiology 05/04/20 08:42 Blood - Venous Blood Culture - Preliminary No growth after 24 hours. 05/04/20 07:55 Blood - Venous Blood Culture - Preliminary Assessment and Plan (1) COVID-19: Problem details: He has positive test within week He has oxygen dependency on NRB He has normal renal function Status: Acute Continue oxygen as needed Since no lobar pneumonia or purulent sputum stop Doxycycline Would continue steroids, B1 recommendation Remdesivir is now dropped to B2 recommendation CDC so would check LFTs and consider,likely not offer much clinical benefit.
[2020-05-05 15:37] LABS: Alanine Aminotransferase 16 U/L (0-40); Albumin Level 2.3 g/dL (3.5-5.0); Alkaline Phosphatase 78 U/L (39-117); Aspartate Amino Transferase 39 U/L (5-37); Bilirubin Direct 1.5 mg/dL (0.0-0.5); Bilirubin Total 2.5 mg/dL (0.0-1.0); Total Protein 5.6 g/dL (6.5-8.0)
[2020-05-05] MEDS: Enoxaparin Sodium 40 MG/0.4 ML SYRINGE SUBCUT (15:45)
[2020-05-06] VITALS (7 sets, daily range): BP systolic 128–159; BP diastolic 63–77; PULSE 76–101; RESP 18–30; TEMP 36.1–37.3; O2SAT 90–98
[2020-05-06] MEDS: Levothyroxine Sodium 50 MCG TABLET PO (06:09)
[2020-05-06 06:40] LABS: Anion Gap 8 (12-20); Blood Urea Nitrogen 18 mg/dL (9-16); C Reactive Protein 1.73 mg/dL (< or = 0.50); Calcium 7.3 mg/dL (8.4-10.2); Carbon Dioxide 25 mmol/L (22-29); Chloride 107 mmol/L (96-108); Creatinine Clr Calc Pharmacy 84.7; Estimated Glomerular Filt Rate > 60; Glucose Random 119 mg/dL (60-115); Lactate Dehydrogenase 323 U/L (118-273); Potassium 3.8 mmol/L (3.3-5.1); Sodium 136 mmol/L (135-145)
[2020-05-06 06:42] LABS: Hematocrit 33.7 % (42-52); Hemoglobin 11.3 g/dl (14.0-18.0); Mean Corpuscular HGB Conc 33.5 g/dl (31.0-36.0); Mean Corpuscular Hemoglobin 34.5 pg (27.0-33.0); Mean Corpuscular Volume 102.7 fL (80-98); Mean Platelet Volume 10.9 fL (9.4-12.4); Red Blood Count 3.28 X10*6/uL (4.60-5.80); Red Cell Distribution Width 15.3 % (11.0-16.0); White Blood Count 4.5 X10*3/uL (4.8-10.8)
[2020-05-06 06:48] LABS: Platelet Count 75 X10*3/uL (160-400)
[2020-05-06] MEDS: Aspirin Enteric Coated 81 MG TABLET.DR PO (08:13)
[2020-05-06] MEDS: Amiodarone HCL 200 MG TABLET 100 MG PO (08:13)
[2020-05-06] MEDS: 0.9 % Sodium Chloride Flush 3 ML SYRINGE IVFLUSH ×2 (08:13→16:10)
[2020-05-06] MEDS: lisinopriL 5 MG TABLET PO (08:18)
--- NOTE | 2020-05-06 11:16 | HO.PM.IMPN ---
Subjective Subjective Date of Service: 05/06/20 Interval History: The patient was seen and evaluated this morning Laying in bed, feels tired and lethargic, not in distress Increased oxygen requirement overnight Denies any fever, chills or shortness of breath No reported other overnight events. Systemic review: No fever, chills but increase weakness, good appetite No chest pain, palpitation Mild shortness of breath with increased oxygen requirement No abdominal pain, nausea or vomiting No urinary symptoms No any rash or wounds Physical Exam Vital Signs: Vital Signs: Last Vital Signs Temp 97.3 F 05/06/20 07:48 Pulse 76 05/06/20 07:48 Resp 22 H 05/06/20 07:48 BP 144/68 H 05/06/20 07:48 Pulse Ox 91 L 05/06/20 07:48 Body Mass Index 28.3 Const: Other: Constitutional : Alert, oriented, not in distress Neck : Normal inspection, Supple Cardiovascular : RRR, S1 S2, no lower extremity edema Respiratory : Chest wall moving bilaterally, does not seem in distress, on 15 L nasal cannula with sats around 90 and dropping Gastrointestinal: soft, lax, Normal bowel sounds, Non tender Skin : Warm/Dry, No rash Neurological : Alert & oriented x3, No focal deficit Objective Data Current Medications Generic Name Dose Route Start Last Admin Trade Name Freq PRN Reason Stop Dose Admin Acetaminophen 650 mg 05/04/20 15:37 Acetaminophen 325 Mg Tablet PO Q6H PRN Pain, Mild (Pain Scale 1-3) Albuterol Sulfate 2 puff 05/04/20 15:37 Albuterol Sulfate 90 Mcg 8 Gm Inhaler INHALE RQ4H PRN Shortness of Breath Amiodarone HCl 100 mg 05/05/20 09:00 05/06/20 08:13 Amiodarone Hcl 200 Mg Tablet PO 100 mg DAILY [facility] Administration Aspirin 81 mg 05/05/20 09:00 05/06/20 08:13 Aspirin Enteric Coated 81 Mg Tablet.Dr PO 81 mg DAILY [facility] Administration Dexamethasone Sodium Phosphate 6 mg 05/04/20 15:15 05/06/20 08:13 Dexamethasone Sod Phosphate/Pf 10 Mg/Ml Vial IVPUSH 6 mg DAILY [facility] Administration Docusate Sodium 100 mg 05/04/20 15:37 Docusate Sodium 100 Mg Capsule PO DAILY PRN Constipation Enoxaparin Sodium 40 mg 05/04/20 16:00 05/05/20 15:45 Enoxaparin Sodium 40 Mg/0.4 Ml Syringe SUBCUT 40 mg Q24H [facility] Administration Levothyroxine Sodium 50 mcg 05/05/20 06:30 05/06/20 06:09 Levothyroxine Sodium 50 Mcg Tablet PO 50 mcg DAILY@0630 [facility] Administration Lisinopril 5 mg 05/05/20 09:00 05/06/20 08:18 Lisinopril 5 Mg Tablet PO 5 mg DAILY [facility] Administration Protocol Ondansetron HCl 4 mg 05/04/20 15:37 Ondansetron Hcl 4 Mg/2 Ml Vial IVPUSH Q8H PRN Nausea and Vomiting Pharmacy Consult 1 each 05/04/20 14:53 Consult Rx Perform Med Rec MISCELLANE ONCE PRN Consult order Sodium Chloride 3 ml 05/04/20 16:00 05/06/20 08:13 0.9 % Sodium Chloride Flush 3 Ml Syringe IVFLUSH 3 ml QSHIFT [facility] Administration Labs CBC & Chem 7: 05/06/20 05:32 05/06/20 05:32 Microbiology Microbiology Results: Microbiology 05/04/20 08:42 Blood - Venous Blood Culture - Preliminary No growth after 48 hours. 05/04/20 07:55 Blood - Venous Blood Culture - Final Coag negative Staphylococcus Assessment and Plan (1) COVID-19: Problem details: He has positive test within week He has oxygen dependency on NRB He has normal renal function Status: Acute (2) Paroxysmal atrial fibrillation: Status: Acute (3) HTN (hypertension): Status: Acute Assessment and Plan: an 80 years old male with PMH of AFib, HTN hypothyroidism who presents to hospital with worsening shortness of breath. found to have COVID-19 and hypoxia Acute hypoxic respiratory failure COVID-19 infection Increased oxygen requirement Requiring nasal cannula and non-rebreather this morning to keep his sat in 90s To start on high-flow if continue to desat Continue IVs dexamethasone D3/10 Id input appreciated, hold on remdesivir Encourage PO intake Positive blood culture One bottle growing gram-positive cocci doxycycline DC per ID To repeat blood cultures pending final sensitivity Neutropenia, thrombocytopenia Seems to be chronic with acute worsening Likely secondary to the infection No need for transfusion of platelets at this point Monitor CBC PAF Continue amiodarone, aspirin not on anticoagulation due to patient choice Hypothyroidism Continue Synthroid Hypertension Blood pressure controlled Continue lisinopril DVT prophylaxis Lovenox Code status-full code
--- NOTE | 2020-05-06 11:38 | MHC.CM.PN ---
Patient lives w/son, Hamzah Lucio at address listed. He lives in a 1 level home, completely independent; no equipment or services, still drives and cooks own food. PCP on file accurate. IMM completed w/patient's son via phone: Hamzah Lucio [phone]. Hamzah MedranoAlex indicates he intends on bringing in a copy of the HCP tomorrow 05/07/20 and leaving it at restaurant front manager for CM nut picker. Copy of IMM prepared for mailing to patient's/son's home address. Plan is home w/son, no services. Hamzah Lucio to nut picker patient when ready for D/C. CM to follow for D/C needs.
[2020-05-06] MEDS: Enoxaparin Sodium 40 MG/0.4 ML SYRINGE SUBCUT (16:08)
[2020-05-07] VITALS (13 sets, daily range): BP systolic 118–153; BP diastolic 56–80; PULSE 66–100; RESP 18–22; TEMP 36.1–37; O2SAT 88–100
[2020-05-07] MEDS: 0.9 % Sodium Chloride Flush 3 ML SYRINGE IVFLUSH ×3 (00:58→16:27)
[2020-05-07 05:56] LABS: Mean Corpuscular Volume 101.4 fL (80-98); PLT CLUMP 1
[2020-05-07 05:58] LABS: Hematocrit 36.5 % (42-52); Hemoglobin 12.2 g/dl (14.0-18.0); Mean Corpuscular HGB Conc 33.4 g/dl (31.0-36.0); Mean Corpuscular Hemoglobin 33.9 pg (27.0-33.0); Mean Platelet Volume 11.5 fL (9.4-12.4); Platelet Count 66 X10*3/uL (160-400); Red Cell Distribution Width 15.1 % (11.0-16.0); White Blood Count 4.8 X10*3/uL (4.8-10.8)
[2020-05-07] MEDS: Levothyroxine Sodium 50 MCG TABLET PO (06:21)
[2020-05-07 06:39] LABS: Anion Gap 11 (12-20); Blood Urea Nitrogen 18 mg/dL (9-16); Calcium 7.6 mg/dL (8.4-10.2); Carbon Dioxide 24 mmol/L (22-29); Chloride 106 mmol/L (96-108); Creatinine Clr Calc Pharmacy 89.9; Estimated Glomerular Filt Rate > 60; Glucose Random 104 mg/dL (60-115); Potassium 4.1 mmol/L (3.3-5.1); Sodium 137 mmol/L (135-145)
[2020-05-07] MEDS: Amiodarone HCL 200 MG TABLET 100 MG PO (08:24)
[2020-05-07] MEDS: Aspirin Enteric Coated 81 MG TABLET.DR PO (08:25)
[2020-05-07] MEDS: lisinopriL 5 MG TABLET PO (08:25)
--- NOTE | 2020-05-07 11:50 | MHC.CM.PN ---
Per ROUNDS discussion, Patient is not yet medically cleared for dc to home today (High flow O2, IV Decadron). CM will follow for possible need to adjust the dc plan.
--- NOTE | 2020-05-07 14:28 | PM.IDPN ---
Subjective Subjective Date of Service: 05/10/20 Interval History: he still has NRB he is speaking in full sentences Objective Data Labs CBC & Chem 7: 05/09/20 06:36 05/09/20 06:36 Labs: Laboratory Results - last 24 hr 05/07/20 05/07/20 05:29 05:29 WBC 4.8 RBC 3.60 L Hgb 12.2 L Hct 36.5 L MCV 101.4 H MCH 33.9 H MCHC 33.4 RDW 15.1 Plt Count 66 L MPV 11.5 Absolute Nucleated RBC 0.000 Nucleated RBC % (auto) 0.0 Sodium 137 Potassium 4.1 Chloride 106 Carbon Dioxide 24 Anion Gap 11 L BUN 18 H Creatinine 0.66 Estim Creat Clear Calc 89.9 Estimated GFR > 60 Random Glucose 104 Calcium 7.6 L Microbiology Microbiology Results: Microbiology 05/05/20 13:42 Blood - Venous Blood Culture - Preliminary No growth after 24 hours. 05/05/20 13:44 Blood - Venous Blood Culture - Preliminary No growth after 24 hours. 05/04/20 08:42 Blood - Venous Blood Culture - Preliminary No growth after 48 hours. 05/04/20 07:55 Blood - Venous Blood Culture - Final Coag negative Staphylococcus Physical Exam Vital Signs: Vital Signs: Last Vital Signs Temp 98.6 F 05/07/20 11:22 Pulse 71 05/07/20 11:22 Resp 22 H 05/07/20 11:22 BP 153/68 H 05/07/20 11:22 Pulse Ox 91 L 05/07/20 12:00 Body Mass Index 28.3 Const: General: cooperative and ill appearing HENMT: Head: Yes normal to inspection Resp: Effort & Inspection: abnormal respiratory pattern Cardio: Rate: regular rate Rhythm: regular rhythm GI: Palpation (GI): Soft to palpation and nontender Skin: General skin exam: no rashes or lesions noted Assessment and Plan Assessment and plan (1) COVID-19: Status: Acute Assessment and Plan: Would continue Dexamethsone Would continue oxygen Would give Remdesivir per protocol Time Spent With Patient Time: Total time spent is greater than 50% in coordination of care (as documented) at patient's floor/unit and/or counseling patient: Time with patient: 15 - 24 minutes
[2020-05-07] MEDS: Remdesivir 200 MG in 0.9 % Sodium Chloride 210 ML 105 MG IV (14:50)
[2020-05-07] MEDS: Enoxaparin Sodium 40 MG/0.4 ML SYRINGE SUBCUT (16:27)
--- NOTE | 2020-05-07 16:35 | HO.PM.IMPN ---
Subjective Subjective Date of Service: 05/07/20 Interval History: Patient seen and examined at bedside Continues to require high-flow non-rebreather Constitutional Constitutional: Denies chills and Denies fever(s) Cardiovascular Cardiovascular: Denies chest pain and Reports dyspnea Respiratory Respiratory: Reports cough and Reports dyspnea Gastrointestinal Gastrointestinal: Denies abdominal pain, Denies diarrhea, Denies nausea and Denies vomiting Physical Exam Vital Signs: Vital Signs: Last Vital Signs Temp 97.0 F 05/07/20 15:58 Pulse 66 05/07/20 15:58 Resp 18 05/07/20 15:58 BP 119/57 L 05/07/20 15:58 Pulse Ox 91 L 05/07/20 15:58 Body Mass Index 28.3 Const: General: no acute distress, alert, awake and tired appearing Orientation/consciousness: patient oriented x3 HENMT: Head: Yes normocephalic and Yes atraumatic Eyes: Sclerae: sclerae normal Chest: Chest palpation & inspection: normal inspection of the chest Resp: Effort & Inspection: normal respiratory effort and no respiratory distress Cardio: Rate: regular rate Rhythm: regular rhythm GI: Palpation (GI): Soft to palpation and nontender Skin: General skin exam: no rashes or lesions noted Neuro: General: patient oriented x3 Cranial nerves: Yes CN's II-XII intact bilaterally and Yes Bilaterally intact EOM present Extrem: Other: dry skin, 1+ edema Objective Data Current Medications Generic Name Dose Route Start Last Admin Trade Name Freq PRN Reason Stop Dose Admin Acetaminophen 650 mg 05/04/20 15:37 Acetaminophen 325 Mg Tablet PO Q6H PRN Pain, Mild (Pain Scale 1-3) Albuterol Sulfate 2 puff 05/04/20 15:37 Albuterol Sulfate 90 Mcg 8 Gm Inhaler INHALE RQ4H PRN Shortness of Breath Amiodarone HCl 100 mg 05/05/20 09:00 05/07/20 08:24 Amiodarone Hcl 200 Mg Tablet PO 100 mg DAILY [facility] Administration Aspirin 81 mg 05/05/20 09:00 05/07/20 08:25 Aspirin Enteric Coated 81 Mg Tablet. PO 81 mg DAILY [facility] Administration Dexamethasone Sodium Phosphate 6 mg 05/04/20 15:15 05/07/20 08:25 Dexamethasone Sod Phosphate/Pf 10 Mg/Ml Vial IVPUSH 6 mg DAILY [facility] Administration Docusate Sodium 100 mg 05/04/20 15:37 Docusate Sodium 100 Mg Capsule PO DAILY PRN Constipation Enoxaparin Sodium 40 mg 05/04/20 16:00 05/07/20 16:27 Enoxaparin Sodium 40 Mg/0.4 Ml Syringe SUBCUT 40 mg Q24H [facility] Administration Remdesivir 100 mg/ Sodium 230 mls @ 115 mls/hr 05/08/20 14:00 Chloride IV 05/11/20 15:59 Q24H [facility] Levothyroxine Sodium 50 mcg 05/05/20 06:30 05/07/20 06:21 Levothyroxine Sodium 50 Mcg Tablet PO 50 mcg DAILY@0630 [facility] Administration Lisinopril 5 mg 05/05/20 09:00 05/07/20 08:25 Lisinopril 5 Mg Tablet PO 5 mg DAILY [facility] Administration Protocol Ondansetron HCl 4 mg 05/04/20 15:37 Ondansetron Hcl 4 Mg/2 Ml Vial IVPUSH Q8H PRN Nausea and Vomiting Pharmacy Consult 1 each 05/04/20 14:53 Consult Rx Perform Med Rec MISCELLANE ONCE PRN Consult order Sodium Chloride 3 ml 05/04/20 16:00 05/07/20 16:27 0.9 % Sodium Chloride Flush 3 Ml Syringe IVFLUSH 3 ml QSHIFT [facility] Administration Labs CBC & Chem 7: 05/07/20 05:29 05/07/20 05:29 Microbiology Microbiology Results: Microbiology 05/05/20 13:42 Blood - Venous Blood Culture - Preliminary No growth after 48 hours. 05/05/20 13:44 Blood - Venous Blood Culture - Preliminary No growth after 48 hours. 05/04/20 08:42 Blood - Venous Blood Culture - Preliminary No growth after 48 hours. 05/04/20 07:55 Blood - Venous Blood Culture - Final Coag negative Staphylococcus Assessment and Plan (1) COVID-19: Problem details: He has positive test within week He has oxygen dependency on NRB He has still oxygen need Status: Acute (2) Paroxysmal atrial fibrillation: Status: Acute (3) HTN (hypertension): Status: Acute Assessment and Plan: an 80 years old male with PMH of AFib, HTN hypothyroidism who presents to hospital with worsening shortness of breath. found to have COVID-19 and hypoxia Acute hypoxic respiratory failure secondary to COVID-19 infection Continues to require non-rebreather and high-flow Continue IVs dexamethasone D4/10 Id input appreciated, started on remdesivir monitor LFTs Encourage PO intake Positive blood culture One bottle grew coagulase negative Staph likely contaminant Repeat cultures negative Neutropenia, thrombocytopenia Seems to be chronic Monitor CBC PAF Continue amiodarone, aspirin not on anticoagulation due to patient choice Hypothyroidism Continue Synthroid Hypertension Blood pressure controlled Continue lisinopril DVT prophylaxis Lovenox Code status-full code
[2020-05-08] VITALS (13 sets, daily range): BP systolic 120–154; BP diastolic 59–75; PULSE 71–109; RESP 16–30; TEMP 36.2–36.7; O2SAT 87–97
[2020-05-08] MEDS: 0.9 % Sodium Chloride Flush 3 ML SYRINGE IVFLUSH ×2 (01:36→08:37)
[2020-05-08] MEDS: Levothyroxine Sodium 50 MCG TABLET PO (06:19)
[2020-05-08] MEDS: Aspirin Enteric Coated 81 MG TABLET.DR PO (08:36)
[2020-05-08] MEDS: Amiodarone HCL 200 MG TABLET 100 MG PO (08:36)
[2020-05-08] MEDS: lisinopriL 5 MG TABLET PO (08:37)
[2020-05-08 10:12] LABS: Alanine Aminotransferase 26 U/L (0-40); Albumin Level 2.4 g/dL (3.5-5.0); Alkaline Phosphatase 83 U/L (39-117); Anion Gap 12 (12-20); Aspartate Amino Transferase 44 U/L (5-37); Bilirubin Total 4.1 mg/dL (0.0-1.0); Blood Urea Nitrogen 24 mg/dL (9-16); Calcium 7.5 mg/dL (8.4-10.2); Carbon Dioxide 24 mmol/L (22-29); Chloride 105 mmol/L (96-108); Creatinine Clr Calc Pharmacy 84.7; Estimated Glomerular Filt Rate > 60; Glucose Random 103 mg/dL (60-115); Potassium 3.4 mmol/L (3.3-5.1); Sodium 138 mmol/L (135-145); Total Protein 5.7 g/dL (6.5-8.0)
[2020-05-08] MEDS: Remdesivir 100 MG in 0.9 % Sodium Chloride 230 ML 115 MG IV (13:56)
--- NOTE | 2020-05-08 15:45 | HO.PM.IMPN ---
Subjective Subjective Date of Service: 05/08/20 Interval History: Patient seen and examined at bedside Continues to require high-flow non-rebreather Constitutional Constitutional: Denies chills, Denies fever(s), Reports lethargy and Reports weakness Cardiovascular Cardiovascular: Denies chest pain and Reports dyspnea Respiratory Respiratory: Reports cough and Reports dyspnea Gastrointestinal Gastrointestinal: Denies abdominal pain, Denies diarrhea, Denies nausea and Denies vomiting Neurologic Neurologic: Reports weakness Physical Exam Vital Signs: Vital Signs: Last Vital Signs Temp 97.4 F 05/08/20 15:08 Pulse 76 05/08/20 15:08 Resp 20 05/08/20 15:08 BP 120/75 05/08/20 15:08 Pulse Ox 90 L 05/08/20 15:08 Body Mass Index 28.3 Const: General: no acute distress, alert, awake and tired appearing Orientation/consciousness: patient oriented x3 HENMT: Head: Yes normocephalic and Yes atraumatic Eyes: Sclerae: sclerae normal Chest: Chest palpation & inspection: normal inspection of the chest Resp: Effort & Inspection: Actively coughing Auscultation: rhonchi Cardio: Rate: regular rate Rhythm: regular rhythm GI: Palpation (GI): Soft to palpation and nontender Skin: General skin exam: no rashes or lesions noted Neuro: General: patient oriented x3 Cranial nerves: Yes CN's II-XII intact bilaterally and Yes Bilaterally intact EOM present Extrem: Other: dry skin, 1+ edema Objective Data Current Medications Generic Name Dose Route Start Last Admin Trade Name Freq PRN Reason Stop Dose Admin Acetaminophen 650 mg 05/04/20 15:37 Acetaminophen 325 Mg Tablet PO Q6H PRN Pain, Mild (Pain Scale 1-3) Albuterol Sulfate 2 puff 05/04/20 15:37 Albuterol Sulfate 90 Mcg 8 Gm Inhaler INHALE RQ4H PRN Shortness of Breath Amiodarone HCl 100 mg 05/05/20 09:00 05/08/20 08:36 Amiodarone Hcl 200 Mg Tablet PO 100 mg DAILY LEN Administration Aspirin 81 mg 05/05/20 09:00 05/08/20 08:36 Aspirin Enteric Coated 81 Mg Tablet. PO 81 mg DAILY LEN Administration Dexamethasone Sodium Phosphate 6 mg 05/04/20 15:15 05/08/20 08:36 Dexamethasone Sod Phosphate/Pf 10 Mg/Ml Vial IVPUSH 6 mg DAILY LEN Administration Docusate Sodium 100 mg 05/04/20 15:37 Docusate Sodium 100 Mg Capsule PO DAILY PRN Constipation Enoxaparin Sodium 40 mg 05/04/20 16:00 05/07/20 16:27 Enoxaparin Sodium 40 Mg/0.4 Ml Syringe SUBCUT 40 mg Q24H LEN Administration Remdesivir 100 mg/ Sodium 230 mls @ 115 mls/hr 05/08/20 14:00 05/08/20 13:56 Chloride IV 05/11/20 15:59 115 mls/hr Q24H LEN Administration Sodium Chloride 1,000 mls @ 75 mls/hr 05/08/20 15:45 Ns IVCONT 05/08/20 23:59 .[id number] [facility] Levothyroxine Sodium 50 mcg 05/05/20 06:30 05/08/20 06:19 Levothyroxine Sodium 50 Mcg Tablet PO 50 mcg DAILY@0630 LEN Administration Lisinopril 5 mg 05/05/20 09:00 05/08/20 08:37 Lisinopril 5 Mg Tablet PO 5 mg DAILY LEN Administration Protocol Ondansetron HCl 4 mg 05/04/20 15:37 Ondansetron Hcl 4 Mg/2 Ml Vial IVPUSH Q8H PRN Nausea and Vomiting Pharmacy Consult 1 each 05/04/20 14:53 Consult Rx Perform Med Rec MISCELLANE ONCE PRN Consult order Sodium Chloride 3 ml 05/04/20 16:00 05/08/20 08:37 0.9 % Sodium Chloride Flush 3 Ml Syringe IVFLUSH 3 ml QSHIFT [facility] Administration Labs CBC & Chem 7: 05/07/20 05:29 05/08/20 09:24 Microbiology Microbiology Results: Microbiology 05/05/20 13:42 Blood - Venous Blood Culture - Preliminary No growth after 48 hours. 05/05/20 13:44 Blood - Venous Blood Culture - Preliminary No growth after 48 hours. 05/04/20 08:42 Blood - Venous Blood Culture - Preliminary No growth after 48 hours. 05/04/20 07:55 Blood - Venous Blood Culture - Final Coag negative Staphylococcus Assessment and Plan (1) COVID-19: Status: Acute (2) Paroxysmal atrial fibrillation: Status: Acute (3) HTN (hypertension): Status: Acute Assessment and Plan: an 80 years old male with PMH of AFib, HTN hypothyroidism who presents to hospital with worsening shortness of breath. found to have COVID-19 and hypoxia Acute hypoxic respiratory failure secondary to COVID-19 infection Continues to require non-rebreather and high-flow Continue IVs dexamethasone D4/10 Id input appreciated, started on remdesivir monitor LFTs Encourage PO intake Positive blood culture likely contaminant One bottle grew coagulase negative Staph likely contaminant Repeat cultures negative Neutropenia, thrombocytopenia Seems to be chronic Monitor CBC PAF Continue amiodarone, aspirin not on anticoagulation due to patient choice Hypothyroidism Continue Synthroid Hypertension Blood pressure controlled Continue lisinopril Urinary retention Continue henderson catheter DVT prophylaxis Lovenox Code status-full code
[2020-05-08] MEDS: 0.9 % Sodium Chloride 1,000 ML 75 ML IVCONT (16:12)
[2020-05-08] MEDS: Enoxaparin Sodium 40 MG/0.4 ML SYRINGE SUBCUT (17:01)
--- NOTE | 2020-05-08 18:17 | PC.NURSE ---
1450- Pt only urinated 25ml over last 8hrs, urine dark macy color. Pt has had poor PO intake, encouraged to drink more. Pt bladdered scanned for 474ml, doesn't feel urge to urinate and does not want to try at this time. Dr. Leblanc made aware. Henderson ordered. 1600- Henderson placed, minimal urinary output. Henderson catheter completed inserted and readjusted, with no change in output. Pt felt urge to urinate and tried with urine coming out around henderson. Pt urinated about 100ml prior to henderson insertion. Pt bladder scanned after henderson insertion, about 220ml scanned. ?Issue with henderson. Dr. Leblanc updated and encouraged a new henderson to be placed. 1700- New henderson placed, patent, minimal urinary output. Pt has no complaints at this time.
[2020-05-09] VITALS (23 sets, daily range): BP systolic 81–214; BP diastolic 43–165; PULSE 69–133; RESP 15–35; TEMP 34.6–36.7; O2SAT 63–99
--- NOTE | 2020-05-09 03:02 | P.EN_ITS ---
Event Note Date of Service: 05/09/20 Event Note: Hypoxia: Patient continued to be hypoxic scan saturating in mid 80s. Patient is on high- flow non-rebreather. Repeated chest x-ray which showed small pneumothorax and, also concern for small pneumo peritoneum. I spoke to the ICU attending; ICU team cannot evaluate the patient. Recommended CT abdomen and CT chest. Mentioned will be under the patient closely. Patient accepted to the ICU. Patient being transferred.
--- NOTE | 2020-05-09 03:14 | P.CONCC_ITS ---
History of Present Illness Data of Consult Service Date: 05/09/20 Requesting physician: Hebert Nguyen Primary Care Provider: Maxi Huynh MD HPI Reason for consult: COVID Resp Failure, R Pneumothorax and ?Pneumoperitoneum HPI: 80-year-old patient with underlying history of hypertension, paroxysmal AFib, hypothyroidism who presented to the emergency room 05/04/20 with complaints of shortness of breath, parental the patient had been exposed to his son who had been sick 3 weeks prior with coronavirus. The patient had reported a week and a half of progressive shortness of breath with cough which was not getting better. At the time of admission, patient's O2 sat was 70%, coronavirus positive and his x-ray showed bibasilar haziness with questionable infiltrates, lactic acid 3.6, ferritin 339, LDH 356, CRP of 2.63. He received Rocephin in the emergency room was admitted. Subsequently the patient was treated on the floor. Had grown a possible contaminated blood culture bottle which was repeated and is pending. As noted he has chronic thrombocytopenia and neutropenia. Has been seen by infectious disease who recommended the steroids and remdesivir which is still currently receiving. Today the patient had been doing well however his O2 sat was in the low 80s despite of high-flow O2 non-rebreather 100% on 60 L. A repeated chest x-ray showed a small right trace pneumothorax and possible pneumoperitoneum therefore were called for a consult. Upon talking to the patient, he states he has no complaints whatsoever, denies increased shortness of breath, his cough has gotten better, he feels ?I am fine?. Denies any abdominal pain, nausea or vomiting. ROS: Denies headache, no visual changes, lightheadedness or dizziness, no history of seizures or strokes, no history of eye or ear problems, no sore throat,, denies chest pain, palpitations, no coronary disease, pulmonary disease, no hemoptysis, denies any melena, hematochezia, liver or kidney problems, no dysuria, hematuria, no leg swelling, no history of DVT or PE. All other review of systems negative. Past Medical History: As above Urinary retention Past Surgical History: Colonoscopy Family history: Noncontributory Social History: Lives at home with his children, no history of tobacco, alcohol or drugs. CODE STATUS: Full code Baseline Functionality: Fully functional Allergies: No known drug allergies Home Medications: See [facility] rec PHYSICAL EXAM: VS: Blood pressure 132/68 , heart rate 102, respirations 18, temperature 97.6?, O2 sat 84% on high-flow nasal cannula/non-rebreather with an FiO2 of 100%. Sats will drop as low as 84% intermittently but will improve with patient laying on his side. General: Alert oriented x3 no acute distress. No accessory muscle usage, no evidence of fatigue. Speaking full sentences. Speech is well articulated, thought process is coherent. Following all commands. Skin: Intact, no lesions, edema, erythema, clubbing or cyanosis. No ulcers. HEENT: Head is normocephalic, atraumatic, pupils equal round reactive to light accommodation bilaterally. Extraocular movements appear intact. Buccal mucosa is moist, Neck is supple without lymphadenopathy. Cardiac: Clear S1-S2, no murmurs rubs or gallops. Pulmonary: Minimally decreased lung sounds without wheezes, rales or rhonchi. Abdomen: Protuberant, positive bowel sounds in all 4 quadrants. Soft, nontender, no rebound or guarding. Musculoskeletal: Moving all 4 extremities upon request a major joints, there is no crepitus or tenderness. The strength is 5/5 bilaterally and throughout all 4 extremities. Gait not assessed at this point. Neurologic: As above, cranial nerves 2-12 are grossly intact. No focal deficits noted. Motor strength as above. Vascular: 2+ pulses upper and lower extremities distally. SIGNIFICANT LABORATORY DATA: Last CBC on 05/07/2020 shows white count 4.8, hemoglobin 12.2, hematocrit 36.5, platelets 20271. D-dimer 807. COVID positive As of yesterday, sodium 130, potassium 3.4, chloride 1 of 5, carbon dioxide 24, anion gap 12, BUN 24, creatinine 0.70, random glucose 103, calcium 7.5, bilirubin 4.1. Albumin 2.4, total protein 5.7. Current ABG shows pH of 7.5, pCO2 29.9, PO2 57, O2 sat 88, base excess 35, HC03 25. REVIEW OF IMAGES: Chest x-ray IMPRESSION: Bilateral interstitial opacities with groundglass attenuation in the perihilar regions as can be seen with interstitial pulmonary edema. Bilateral pneumonia could also have this appearance. Trace right pneumothorax. Possible pneumoperitoneum underlying the right hemidiaphragm. Consider left lateral decubitus views of the abdomen for further assessment. EKG REVIEW: Reviewed from 05/04/2020 showing normal sinus rhythm, nonspecific ST and T-wave abnormalities, age undetermined changes. No comparison available. ASSESSMENT AND PLAN: 1. Hypoxic respiratory failure due to COVID pneumonia about 2 wks since onset of sx 2. Acute kidney injury with BUN to creatinine ratio of 34 likely due to insensible losses and poor p.o. intake 3. Stable essential hypertension 4. Right trace pneumothorax likely due to 1. 5. Questionable pneumoperitoneum of unknown origin at this point 6. Chronic Thrombocytopenia NOS ( on ASA) ? liver disease 7. Chronic Macrocytic anemia rule out B12 folate deficiency ; no hx of etoh abuse 8. Pseudo hypocalcemia with adjusted calcium of 11.3 9. Hypoalbuminemia 10. FULL CODE 11. Chronic Paroxismal A fib currently not an issue. At this point I do not think that there is immediate need to transfer the patient to ICU, will further assess the possibility of pneumothorax and pneumoperitoneum via CT of the chest in abdomen. Patient is already receiving oxygen, , his blood gas was reviewed and there is no significant concerns other than the hypoxia. Continue with remdesivir. Continue steroids. Gentle IV fluids would be ideal. We would suggest checking COVID biomarkers including ferritin, CRP, D-dimer, procalcitonin. Recheck all other labs in the morning. GI PROPHYLAXIS: Add Pepcid DVT PROPHYLAXIS: Will continue Lovenox subQ 0403 am unfortunately the patient's O2 sat has come down to the high 70s the patient appears to be somewhat anxious versus distress, morphine 2 mg IV x1 will be given and will consider transferring the patient to the ICU for further and closer management. The CT of the abdomen and chest was not possible to be done at this point. Will order a portable chest x-ray and abdomen. 0415 patient appears to have decompensated quickly, his O2 sat with current high-flow to a non-rebreather 100% FiO2 is 80%. Heart rate is 133, respirations 22. Patient now appears to have significant work of breathing, given the pneumothorax on the right, it is unlikely that positive pressure is good for him therefore he will likely need intubation. I have called and left a message on the patient's son voicemail machine. 0430 upon arrival of the patient to the ICU, I noted that the patient had was having significant difficulty breathing, gasping for air and using accessory muscles. Decision for intubation was made at this point, patient's sats were in the low 70s. RSI procedure was followed, please see separate note for details. Post intubation x-ray shows successful intubation with the placement of the endotracheal tube approximately 2-3 cm above the román, however this was complicated by bilateral pneumothorax left greater than right. At this point have requested the assistance from the wound the ER physicians and have notified Dr. Yan of the above. At this point, the patient's chin was placed on the following ventilation settings rate of 24, tidal volume 400, peep of 5, FiO2 100. 0600 central line right IJ placement was successful. Please see separate procedure for details. Now that the patient is intubated and hemodynamically stable with bilateral chest tubes, the patient will likely need CT of the abdomen and pelvis, case discussed with Dr. Yan who is now at bedside and guiding me to place the right pigtail chest tube. Critical care time used for critical evaluation of this patient, diagnosis, treatment and coordination of care, review her records and documentation TOTAL CRITICAL CARE TIME 150 MIN; separate any procedures performed on this patient. Patient's care was discussed in detail with Dr. Yan. He is aware of all the above as well as the plan of care for this patient. [facility] Past Medical History Medical History HTN (hypertension) Hypothyroidism Paroxysmal atrial fibrillation Functional capacity: independent ambulation Family History Family History Father No problems noted. Mother No problems noted. Family history: reviewed and not pertinent Surgical History Surgical History Hx of colonoscopy Social History Social History Household Members: Children Housing: House Alcohol intake: never Smoking Status: Never smoker Advance Directives Date on File: 05/04/20 Current occupational status: retired Meds Allergies Allergy/AdvReac Type Severity Reaction Status Date / Time No Known Allergies Allergy Mild N/A Unverified 11/10/19 15:18 Active Medications: Current Medications Generic Name Dose Route Start Last Admin Trade Name Yfnq PRN Reason Stop Dose Admin Acetaminophen 650 mg 05/04/20 15:37 Acetaminophen 325 Mg Tablet PO Q6H PRN Pain, Mild (Pain Scale 1-3) Albuterol Sulfate 2 puff 05/04/20 15:37 Albuterol Sulfate 90 Mcg 8 Gm Inhaler INHALE RQ4H PRN Shortness of Breath Amiodarone HCl 100 mg 05/05/20 09:00 05/08/20 08:36 Amiodarone Hcl 200 Mg Tablet PO 100 mg DAILY LEN Administration Aspirin 81 mg 05/05/20 09:00 05/08/20 08:36 Aspirin Enteric Coated 81 Mg Tablet.Dr PO 81 mg DAILY LEN Administration Dexamethasone Sodium Phosphate 6 mg 05/04/20 15:15 05/08/20 08:36 Dexamethasone Sod Phosphate/Pf 10 Mg/Ml Vial IVPUSH 6 mg DAILY LEN Administration Docusate Sodium 100 mg 05/04/20 15:37 Docusate Sodium 100 Mg Capsule PO DAILY PRN Constipation Enoxaparin Sodium 40 mg 05/04/20 16:00 05/08/20 17:01 Enoxaparin Sodium 40 Mg/0.4 Ml Syringe SUBCUT 40 mg Q24H LEN Administration Remdesivir 100 mg/ Sodium 230 mls @ 115 mls/hr 05/08/20 14:00 05/08/20 16:22 Chloride IV 05/11/20 15:59 Infused Q24H LEN Infusion Levothyroxine Sodium 50 mcg 05/05/20 06:30 05/08/20 06:19 Levothyroxine Sodium 50 Mcg Tablet PO 50 mcg DAILY@0630 LEN Administration Lisinopril 5 mg 05/05/20 09:00 05/08/20 08:37 Lisinopril 5 Mg Tablet PO 5 mg DAILY LEN Administration Protocol Ondansetron HCl 4 mg 05/04/20 15:37 Ondansetron Hcl 4 Mg/2 Ml Vial IVPUSH Q8H PRN Nausea and Vomiting Pharmacy Consult 1 each 05/04/20 14:53 Consult Rx Perform Med Rec MISCELLANE ONCE PRN Consult order Sodium Chloride 3 ml 05/04/20 16:00 05/08/20 21:52 0.9 % Sodium Chloride Flush 3 Ml Syringe IVFLUSH Not Given QSHIFT [facility] Home Medications Medication Instructions Recorded Confirmed Last Taken Type aspirin 81 mg tablet,delayed 81 mg PO DAILY 12/30/19 05/04/20 Unknown History release levothyroxine 50 mcg tablet 50 mcg PO DAILY 12/30/19 05/04/20 05/04/20 History Physical Exam Vital Signs: Vital Signs: Last Vital Signs Temp 97.8 F 05/08/20 23:36 Pulse 79 05/08/20 23:36 Resp 18 05/08/20 23:36 BP 143/67 H 05/08/20 23:36 Pulse Ox 89 L 05/08/20 23:36 Body Mass Index 28.3 Results Labs CBC & Chem 7: 05/09/20 06:36 05/09/20 06:36 Labs: BMP 05/08/20 09:24 Sodium 138 Potassium 3.4 Chloride 105 Carbon Dioxide 24 BUN 24 H Creatinine 0.70 Calcium 7.5 L Liver Function 05/08/20 Range/Units 09:24 Total Bilirubin 4.1 H (0.0-1.0) mg/dL AST 44 H (5-37) U/L ALT 26 (0-40) U/L Alkaline Phosphatase 83 (39-117) U/L Albumin 2.4 L (3.5-5.0) g/dL Microbiology Microbiology Results: Microbiology 05/05/20 13:42 Blood - Venous Blood Culture - Preliminary No growth after 48 hours. 05/05/20 13:44 Blood - Venous Blood Culture - Preliminary No growth after 48 hours. 05/04/20 08:42 Blood - Venous Blood Culture - Preliminary No growth after 48 hours. 05/04/20 07:55 Blood - Venous Blood Culture - Final Coag negative Staphylococcus
--- NOTE | 2020-05-09 03:22 | PC.NURSE ---
Addendum entered by Yandy Jarrell RN 05/09/20 05:08: @0400 Pt stated he cannot breathe and was in distress. BP elevated at 184/95, HR: 133, RR: 22, O2 sat: 72% on 60L HFNC and 100% NRB. Decision was made by ICU to accept the patient. Pt transferred down to ICU accompanied by this RN, Nursing subwarehouse supervisor, and RT at 0445. Pt intubated in ICU upon arrival. Original Note: Pt found to be hypoxic satting at 82-87% around midnight. Pt was on 60L HFNC, 100% NRB. RT contacted and adjusted flowmeter to try to improve O2 sat. Pt also repositioned to side-lying position. Pt denies any respiratory distress, A&Ox4, VSS. notified that pt's O2 sat was still not improving. MD ordered STAT ABGs, and CXR.
[2020-05-09] MEDS: Morphine Sulfate 2 MG/ML CARTRIDGE IVPUSH (04:07)
[2020-05-09 05:21] LABS: ABG Base Excess 3.5 mmol/L; ABG HCO3 25 mmol/L (22-26); ABG pCO2 30 mmHg (32-45); ABG pH 7.53 (7.35-7.45); ABG pO2 58 mmHg (83-108)
[2020-05-09] MEDS: propofoL 1,000 MG/100 ML VIAL 9.83 MG IVCONT ×2 (06:30→11:01)
--- NOTE | 2020-05-09 06:38 | W.PM.CCHP ---
Procedures Intubation Intubation Comments: Given that the patient developed progressive respiratory fatigue, somnolence and hypoxia really quick, raising the suspicion for developing or worsening pneumothorax as a trace 1 was noted on the right side, RSI was followed, patient was preoxygenated, etomidate 20 mg and succinylcholine 80 mg medications were used for sedation and paralysis respectively. Using the GlideScope, the close was identified and using a 4.0 Blade, an ETT tube 7.5 was inserted via direct vision in a nontraumatic way. Post intubation, breath sounds were equal and bilateral, CO2 test in show positive color change to yellow, SpO2 maintained. The tube was secured at 24 cm at the upper lip. Patient tolerated the procedure well without complications. Postop x-ray showed endotracheal tube approximately 3 cm above the román; however it is noted that the patient has developed bilateral pneumothorax left more than right. For urgently, high call the ER physician Dr. Ruff for support and I informed Dr. Yan. With the help of the above-mentioned ER physician, she did place a left chest tube which was connected to low water-seal suction. Follow chest x-rays show good re-expansion of the lung. Case was discussed in detail with Dr. Yan. He is aware of all the above as well as the plan of care for this patient. Consent for Procedure: Emergent-no informed consent obtained Time out performed: Yes Sedative: etomidate Mg given: 20 Paralytic: succinylcholine Mg given: 80 Laryngoscope: fiber optic video scope Assist device used: Bougie ET tube size: 7.5 ET tube uncuffed: Yes Tube secured depth (cm): 24 Tube secured location: lips Tube placement confirmation: visualized tube passing through cords Patient tolerated procedure: other (On x-ray, bilateral pneumothorax noted.)
--- NOTE | 2020-05-09 06:41 | P.PCNCC_ITS ---
Procedures Chest Tube Chest Tube 2: Chest tube location: Anterior Chest (Hemlic Valve pig Tail Cath ) <JOHN Ramires - Last Filed: 05/09/20 06:44> Chest tube procedure: Yes betadine prep and sterile drapes applied <JOHN Ramires - Last Filed: 05/09/20 06:44> Tube sutured to skin: Yes <JOHN Ramires - Last Filed: 05/09/20 06:44> Sterile dressing applied: Yes <JOHN Ramires - Last Filed: 05/09/20 06:44> Anesthesia: 1% Lidocaine <JOHN Ramires - Last Filed: 05/09/20 06:44> Volume anesthetic (ml): 10 <JOHN Ramires - Last Filed: 05/09/20 06:44> Incision made with: other (scapel from kit ) <JOHN Ramires - Last Filed: 05/09/20 06:44> Post procedure: sutured to skin <JOHN Ramires - Last Filed: 05/09/20 06:44> Stewart of air heard: Yes <JOHN Ramires - Last Filed: 05/09/20 06:44> Tube Drainage: none <JOHN Ramires - Last Filed: 05/09/20 06:44> Post procedure CXR?: Yes <JOHN Ramires - Last Filed: 05/09/20 06:44> Patient tolerated procedure: Yes <JOHN Ramires - Last Filed: 05/09/20 06:44> Progress: chest tube placement in the anterior segment midclavicular intercostal space of the right chest, with the help of Dr. Yan was successful, postprocedural chest x-ray shows full resolution of right pneumothorax. <JOHN Ramires - Last Filed: 05/09/20 06:44> PROCEDURE: Insertion Raymond pigtail pneumothorax drainage catheter. INDICATION: Right pneumothorax 2? COVID pneumonia ANESTHESIA: Local plus propofol infusion. PROCEDURE: CXR identified a right pneumothorax. Therefore a pneumothorax drainage catheter was placed emergently. The right chest was widely prepped. The 18 g needle from the Cook Raymond pneumothorax tray was placed into the chest above the second or third rib in the MCL. Air was easily aspirated on entering the thoracic cavity. The wire was threaded, then the needle withdrawn and the large avila dilator inserted. The d ilator was then removed from the wire and replaced by the pigtail mounted on its inner stylette. The pigtail was advanced easily about 8? or so into the chest, and then hooked up to a Heimlich valve. The pigtail was then sutured x 1 to the anter chest wall, and a DSD applied. Postop chest x-ray showed the pigtail in good position with less but still significant pneumothorax. The patient tolerated the procedure well w no complications. <Des Yan - Last Filed: 05/09/20 08:09>
[2020-05-09 06:56] LABS: Venous Blood Gas Refer to POC result
[2020-05-09 06:56] LABS: Basophils Percent Auto 0.2 % (0-2); Hematocrit 37.9 % (42-52); Hemoglobin 12.3 g/dl (14.0-18.0); Imm Gran Abs Auto 0.45 X10*3/uL (0.00-0.03); Imm Gran Pct Auto 2.5 % (0.0-0.4); Lymphocytes Absolute Auto 0.5 X10*3/uL (1.2-4.9); MANUAL DIFF FLAG SCAN; Mean Corpuscular HGB Conc 32.5 g/dl (31.0-36.0); Mean Corpuscular Hemoglobin 34.1 pg (27.0-33.0); Mean Platelet Volume 11.3 fL (9.4-12.4); Monocytes Absolute Auto 1.5 X10*3/uL (0.1-1.2); Monocytes Percent Auto 8.3 % (2-11); NRBC Pct Auto 0.1 /100WBC (0.0-0.2); Neutrophils Absolute Auto 15.7 X10*3/uL (2.0-8.3); Platelet Count 183 X10*3/uL (160-400); Red Blood Count 3.61 X10*6/uL (4.60-5.80); Red Cell Distribution Width 15.9 % (11.0-16.0); SCAN SMEAR FLAG 1; White Blood Count 18.2 X10*3/uL (4.8-10.8)
[2020-05-09 06:57] LABS: VBG Base Excess -9.2 mmol/L; VBG HCO3 18 mmol/L (22-26); VBG pCO2 47 mmHg; VBG pH 7.19 (7.32-7.43); VBG pO2 54 mmHg
[2020-05-09] MEDS: fentaNYL citrate/NS 1,000 MCG/100 ML PLAST..BAG 5 MCG IVCONT (07:00)
[2020-05-09 07:18] LABS: Alanine Aminotransferase 33 U/L (0-40); Albumin Level 2.5 g/dL (3.5-5.0); Alkaline Phosphatase 96 U/L (39-117); Aspartate Amino Transferase 53 U/L (5-37); Bilirubin Direct 2.2 mg/dL (0.0-0.5); Bilirubin Total 5.8 mg/dL (0.0-1.0); Total Protein 5.8 g/dL (6.5-8.0)
[2020-05-09 07:21] LABS: Anion Gap 16 (12-20); Blood Urea Nitrogen 28 mg/dL (9-16); C Reactive Protein 1.13 mg/dL (< or = 0.50); Calcium 7.6 mg/dL (8.4-10.2); Carbon Dioxide 20 mmol/L (22-29); Chloride 104 mmol/L (96-108); Creatinine Clr Calc Pharmacy 75.1; Estimated Glomerular Filt Rate > 60; Glucose Random 145 mg/dL (60-115); Magnesium 2.4 mg/dL (1.6-2.6); Phosphorus 4.4 mg/dL (2.7-4.5); Potassium 3.7 mmol/L (3.3-5.1); Sodium 136 mmol/L (135-145)
[2020-05-09 07:28] LABS: D Dimer 3056 NG/ML
[2020-05-09 07:36] LABS: B Type Natriuretic Peptide 286 pg/mL (<100)
[2020-05-09 07:39] LABS: Procalcitonin 0.05 ng/mL
[2020-05-09 07:43] LABS: Ferritin 723 ng/mL (20-250)
--- NOTE | 2020-05-09 08:07 | PC.NURSE ---
pt transferred via bed from [facility] [place] d/t resp distress r/t covid infection. on arrival pt anxious yelling out i can not breath. pt on supplemental o2 100% via nrb mask. dyspneic with abdominal retractions noted with resp effort. sao2 70s. breath sounds diminished throughout. ecg displays afib ventricular response 120-130 bpm. abdomen concave/soft. henderson catheter in place and draining conc macy urine. pt emergently intubated by midlevel provider vaughn barba without incident-+ colormetric end tidal co2 color change achieved with intubation. bilat breath sounds audible. initially sao2 elvie into the 90s. unfortunately several minutes after intubation sao2 declined into the 65-67 range. post intubation cxr revealed bilat pneumothoraces-emergently dr niño from ed summoned to bedside in which she inserted thoracostomy tube to left chest wall. thoracostomy tube connected to atrium collection apparatus to which -20 cm of suction is applied. thoacostomy tube immediately drained 700 ml of dark serosaguinous drainage. at this juncture dr reardon arrived and inserted thoracostomy tube with heimlich valve to right apical lung. further interventions included 1. repeated cxr 2. insertion of orogastric tube 3. implementation of propofol infusion post intubation. 4. despite bilat thoracostomy tubes sao2 have remained in the 68-70 range. 5. labs drawn-
[2020-05-09 08:13] LABS: SLIDE REVIEW VERIFIED
[2020-05-09 08:44] LABS: Reflex Lactate? Lactic Acid Added
[2020-05-09] MEDS: Levothyroxine Sodium 50 MCG TABLET PO (09:12)
[2020-05-09] MEDS: 0.9 % Sodium Chloride Flush 3 ML SYRINGE IVFLUSH (09:12)
[2020-05-09] MEDS: methylPREDNISolone Sod Succ 125 MG/2 ML VIAL 80 MG IVPUSH (09:12)
[2020-05-09] MEDS: Ascorbic Acid 500 MG TABLET 1000 MG G-TUBE ×2 (09:13→13:16)
[2020-05-09] MEDS: Famotidine/PF 20 MG/2 ML VIAL IVPUSH (09:13)
[2020-05-09] MEDS: Thiamine HCL 100 MG TABLET 200 MG G-TUBE (09:13)
[2020-05-09] MEDS: Cholecalciferol (Vitamin D3) 25 MCG TABLET 50 MCG G-TUBE (09:13)
[2020-05-09 10:18] LABS: VBG Base Excess -9.5 mmol/L; VBG HCO3 17 mmol/L (22-26); VBG pCO2 42 mmHg; VBG pH 7.22 (7.32-7.43); VBG pO2 58 mmHg
[2020-05-09 10:19] LABS: INTERNATIONAL NORM RATIO 2.4 (0.9-1.1); Prothrombin Time 28.3 SEC (10.8-13.0)
[2020-05-09 10:39] LABS: Venous Blood Gas Refer to POC result
[2020-05-09 10:45] LABS: Lactic Acid 5.8 mmol/L (0.5-2.0)
[2020-05-09 12:11] LABS: Reflex Lactate? Lactic Acid Added
[2020-05-09] MEDS: fentaNYL citrate/NS 1,000 MCG/100 ML PLAST..BAG 15 MCG IVCONT (13:16)
[2020-05-09] MEDS: Remdesivir 100 MG in 0.9 % Sodium Chloride 230 ML 115 MG IV (13:16)
--- NOTE | 2020-05-09 14:08 | P.PNCC_ITS ---
Subjective Subjective Date of Service: 05/09/20 Interval History: Mr. Nugent was transferred to ICU this morning with acute resp failure 2? bilat COVID pneumonia w ARDS and right pneumothorax. The patient is an 80 yo generally health man with h/o PAfib and HTN. He was admitted to [facility] on 05/04 with COVID pneumonia. Notably, labs since then are strongly suggestive that the patient had cirrhosis. The patient?s oxygen requirements elvie and up until early this morn he was on HFNC + NRBFM. His Sat dropped early this morning. A CXR at 0132 was read as showing a trace right pneumothorax, so we were asked to see him. On initial eval by JOHN Jimenez, the patient had no complaints, sat was 84% w RR 18. A couple of hours later, his Sat deteriorated and the patient developed resp di stress. He was tx down to ICU and required urgent intubation, following which the patient?s Sat deteriorated dramatically and CXR showed bilat PTXs. Dr. Wilcox from the ED placed a left chest tube, and I placed a right Raymond pigtail thoracostomy. Sats were in the 60?s for quite some time and there was residual bilat PTX, but after both chest tubes were placed on sxn, both PTXs resolved fully and the Sat elvie into the 80?s on 95% FiO2/w 5cm PEEP. The underlying pulmonary parenchyma showed bilat very severe ARDS. I spoke with both of the patient?s children by telephone: Hamzah Medrano, ([phone]) and Sharmila ([phone]). I discussed the events of this morning and expressed the unfortunate reality that their father?s survival probability was likely no higher than 1-2%, if that. They both indicated to me, separately, that he never would have wanted this (all the above), and that he would never wanted to have life support or CPR. I changed his status to DNR. Over the morning, he required escalating doses of Levophed and was not making urine. I spoke with Hamzah and Sharmila again in the early afternoon. They made the decision to proceed with comfort measures only and to withdraw critical care management. Hamzah came in at 3pm. I spoke with him further and he spent time in the room w his father. Supportive measures were discontinued after 4pm, the endotracheal tube was removed, and the patient very shortly thereafter at 1620. Critical care time (excluding procedures): 90+ min. Physical Exam Vital Signs: Vital Signs: Last Vital Signs Temp 96.8 F 05/09/20 12:00 Pulse 70 05/09/20 12:00 Resp 16 05/09/20 12:00 BP 92/50 L 05/09/20 12:00 Pulse Ox 83 L 05/09/20 12:00 Body Mass Index 28.3 Objective Data Labs CBC & Chem 7: 05/09/20 06:36 05/09/20 06:36 Labs: Laboratory Results - last 24 hr 05/09/20 05/09/20 05/09/20 01:55 06:36 06:36 WBC RBC Hgb Hct MCV MCH MCHC RDW Plt Count MPV Immature Gran % (Auto) Neut % (Auto) Lymph % (Auto) [place] % (Auto) Eos % (Auto) Baso % (Auto) Lymph # (Auto) [place] # (Auto) Eos # (Auto) Baso # (Auto) Abs Immat Gran (auto) Absolute Neuts (auto) Absolute Nucleated RBC Nucleated RBC % (auto) Smear Tech's Comments PT INR D-Dimer Cancelled O2 Saturation 88.0 ABG pH at Pt Temp 7.53 H ABG pCO2 at Pt Temp 30 L ABG pO2 at Pt Temp 58 L ABG HCO3 25 ABG Base Excess (Actual) 3.5 VBG pH VBG pCO2 VBG pO2 VBG HCO3 VBG O2 Saturation VBG Base Excess Sodium Potassium Chloride Carbon Dioxide Anion Gap BUN Creatinine Estim Creat Clear Calc Estimated GFR Random Glucose Lactic Acid Lactic Acid Fup @ 2Hr Calcium Phosphorus Magnesium Ferritin Total Bilirubin 5.8 H Direct Bilirubin 2.2 H AST 53 H ALT 33 Alkaline Phosphatase 96 Troponin I High Sens C-Reactive Protein B-Natriuretic Peptide Total Protein 5.8 L Albumin 2.5 L Procalcitonin 05/09/20 05/09/20 05/09/20 06:36 06:36 06:36 WBC 18.2 H RBC 3.61 L Hgb 12.3 L Hct 37.9 L MCV 105.0 H MCH 34.1 H MCHC 32.5 RDW 15.9 Plt Count 183 D MPV 11.3 Immature Gran % (Auto) 2.5 H Neut % (Auto) 86.0 H Lymph % (Auto) 3.0 L [place] % (Auto) 8.3 Eos % (Auto) 0.0 Baso % (Auto) 0.2 Lymph # (Auto) 0.5 L [place] # (Auto) 1.5 H Eos # (Auto) 0.0 Baso # (Auto) 0.0 Abs Immat Gran (auto) 0.45 H Absolute Neuts (auto) 15.7 H Absolute Nucleated RBC 0.020 H Nucleated RBC % (auto) 0.1 Smear Tech's Comments VERIFIED PT INR D-Dimer O2 Saturation ABG pH at Pt Temp ABG pCO2 at Pt Temp ABG pO2 at Pt Temp ABG HCO3 ABG Base Excess (Actual) VBG pH VBG pCO2 VBG pO2 VBG HCO3 VBG O2 Saturation VBG Base Excess Sodium Cancelled Potassium Cancelled Chloride Cancelled Carbon Dioxide Cancelled Anion Gap Cancelled BUN Cancelled Creatinine Cancelled Estim Creat Clear Calc Cancelled Estimated GFR Cancelled Random Glucose Cancelled Lactic Acid Lactic Acid Fup @ 2Hr Calcium Cancelled Phosphorus Magnesium Ferritin Cancelled Total Bilirubin Direct Bilirubin AST ALT Alkaline Phosphatase Troponin I High Sens C-Reactive Protein B-Natriuretic Peptide Total Protein Albumin Procalcitonin Cancelled 05/09/20 05/09/20 05/09/20 06:36 06:36 06:36 WBC RBC Hgb Hct MCV MCH MCHC RDW Plt Count MPV Immature Gran % (Auto) Neut % (Auto) Lymph % (Auto) [place] % (Auto) Eos % (Auto) Baso % (Auto) Lymph # (Auto) [place] # (Auto) Eos # (Auto) Baso # (Auto) Abs Immat Gran (auto) Absolute Neuts (auto) Absolute Nucleated RBC Nucleated RBC % (auto) Smear Tech's Comments PT INR D-Dimer 3056 O2 Saturation ABG pH at Pt Temp ABG pCO2 at Pt Temp ABG pO2 at Pt Temp ABG HCO3 ABG Base Excess (Actual) VBG pH VBG pCO2 VBG pO2 VBG HCO3 VBG O2 Saturation VBG Base Excess Sodium 136 Potassium 3.7 Chloride 104 Carbon Dioxide 20 L Anion Gap 16 BUN 28 H Creatinine 0.79 Estim Creat Clear Calc 75.1 Estimated GFR > 60 Random Glucose 145 H D Lactic Acid 6.0 H* Lactic Acid Fup @ 2Hr Calcium 7.6 L Phosphorus 4.4 Magnesium 2.4 Ferritin 723 H Total Bilirubin Direct Bilirubin AST ALT Alkaline Phosphatase Troponin I High Sens C-Reactive Protein 1.13 H B-Natriuretic Peptide Total Protein Albumin Procalcitonin 05/09/20 05/09/20 05/09/20 06:36 06:37 06:49 WBC RBC Hgb Hct MCV MCH MCHC RDW Plt Count MPV Immature Gran % (Auto) Neut % (Auto) Lymph % (Auto) [place] % (Auto) Eos % (Auto) Baso % (Auto) Lymph # (Auto) [place] # (Auto) Eos # (Auto) Baso # (Auto) Abs Immat Gran (auto) Absolute Neuts (auto) Absolute Nucleated RBC Nucleated RBC % (auto) Smear Tech's Comments PT INR D-Dimer O2 Saturation ABG pH at Pt Temp ABG pCO2 at Pt Temp ABG pO2 at Pt Temp ABG HCO3 ABG Base Excess (Actual) VBG pH 7.19 L* VBG pCO2 47 VBG pO2 54 VBG HCO3 18 L VBG O2 Saturation 67.0 VBG Base Excess -9.2 Sodium Potassium Chloride Carbon Dioxide Anion Gap BUN Creatinine Estim Creat Clear Calc Estimated GFR Random Glucose Lactic Acid Lactic Acid Fup @ 2Hr Calcium Phosphorus Magnesium Ferritin Total Bilirubin Direct Bilirubin AST ALT Alkaline Phosphatase Troponin I High Sens 148.0 H D C-Reactive Protein B-Natriuretic Peptide 286 H Total Protein Albumin Procalcitonin 0.05 05/09/20 05/09/20 05/09/20 10:02 10:06 10:06 WBC RBC Hgb Hct MCV MCH MCHC RDW Plt Count MPV Immature Gran % (Auto) Neut % (Auto) Lymph % (Auto) [place] % (Auto) Eos % (Auto) Baso % (Auto) Lymph # (Auto) [place] # (Auto) Eos # (Auto) Baso # (Auto) Abs Immat Gran (auto) Absolute Neuts (auto) Absolute Nucleated RBC Nucleated RBC % (auto) Smear Tech's Comments PT 28.3 H D INR 2.4 H D-Dimer O2 Saturation ABG pH at Pt Temp ABG pCO2 at Pt Temp ABG pO2 at Pt Temp ABG HCO3 ABG Base Excess (Actual) VBG pH VBG pCO2 VBG pO2 VBG HCO3 VBG O2 Saturation VBG Base Excess Sodium Potassium Chloride Carbon Dioxide Anion Gap BUN Creatinine Estim Creat Clear Calc Estimated GFR Random Glucose Lactic Acid 5.8 H* Lactic Acid Fup @ 2Hr Cancelled Calcium Phosphorus Magnesium Ferritin Total Bilirubin Direct Bilirubin AST ALT Alkaline Phosphatase Troponin I High Sens C-Reactive Protein B-Natriuretic Peptide Total Protein Albumin Procalcitonin 05/09/20 05/09/20 10:06 10:11 WBC RBC Hgb Hct MCV MCH MCHC RDW Plt Count MPV Immature Gran % (Auto) Neut % (Auto) Lymph % (Auto) [place] % (Auto) Eos % (Auto) Baso % (Auto) Lymph # (Auto) [place] # (Auto) Eos # (Auto) Baso # (Auto) Abs Immat Gran (auto) Absolute Neuts (auto) Absolute Nucleated RBC Nucleated RBC % (auto) Smear Tech's Comments PT INR D-Dimer O2 Saturation ABG pH at Pt Temp ABG pCO2 at Pt Temp ABG pO2 at Pt Temp ABG HCO3 ABG Base Excess (Actual) VBG pH 7.22 L VBG pCO2 42 VBG pO2 58 VBG HCO3 17 L VBG O2 Saturation 78.0 VBG Base Excess -9.5 Sodium Potassium Chloride Carbon Dioxide Anion Gap BUN Creatinine Estim Creat Clear Calc Estimated GFR Random Glucose Lactic Acid Lactic Acid Fup @ 2Hr Calcium Phosphorus Magnesium Ferritin Total Bilirubin Direct Bilirubin AST ALT Alkaline Phosphatase Troponin I High Sens 879.0 H D C-Reactive Protein B-Natriuretic Peptide Total Protein Albumin Procalcitonin Microbiology Microbiology Results: Microbiology 05/04/20 08:42 Blood - Venous Blood Culture - Final No growth after 5 days. 05/05/20 13:42 Blood - Venous Blood Culture - Preliminary No growth after 48 hours. 05/05/20 13:44 Blood - Venous Blood Culture - Preliminary No growth after 48 hours. 05/04/20 07:55 Blood - Venous Blood Culture - Final Coag negative Staphylococcus Progress Note: A&P Time Spent With Patient Time: Total time spent is greater than 50% in coordination of care (as documented) at patient's floor/unit and/or counseling patient: Total time spent with greater than 50% in coordination of care (as documented) at patient's floor/unit and/or counseling patient:: 0 Critical Care Time Critical Care Time (minutes): 90
--- NOTE | 2020-05-09 15:35 | PC.NURSE ---
Addendum entered by Manuela Gomez RN 05/09/20 15:59: organ bank called, case declined, spoke with Xin Coronel referral # [id number] Original Note: PT not synchronous with vent this am, overbreathing vent, fentanyl drip started and titrated up per MD for pt comfort. Continues on propofol, no purposeful movement noted, restraints remain for patient comfort temp down to 94.5 via core probe this shift, placed on a bear hugger, temp up to 97.9 this afternoon and bear hugger removed/ bps trending down, levophed drip started/ md aware/ amiodorone and lisinopril not given due to bP, repeat chest x-ray ordered and done and noon chest tube to right side placed to suction per md at -25, 124 bloody drainage out/ left chest tube with 770 out this shift, to suction -20, leak present, md aware md aware of critical lactics, d/cd per MD aware of critical troponin only 15ml of urine output this shift after family discussion with MD, decision made to make pt CMP, Propofol and fentanyl titrated up per md for pt comfort/ pt son at bedside with patient
--- NOTE | 2020-05-09 19:35 | P.DS_ITS ---
DS: Providers Provider Date of Service: 05/09/20 Date of admission: 05/04/20 15:03 Primary care physician: Maxi Huynh MD Consults: ADMISSION / DISCHARGE DIAGNOSIS: 1. Severe ARDS / Hypoxic respiratory failure due to COVID pneumonia about 2 wks since onset of sx 2. Acute kidney injury with BUN to creatinine ratio of 34 likely due to insensible losses and poor p.o. intake 3. Stable essential hypertension 4. Bilateral Pneumothorax L > R (tx and resolved with Bilateral chest tubes) 5. Questionable pneumoperitoneum of unknown origin at this point 6. Chronic Thrombocytopenia NOS ( on ASA) ? liver disease (cirrhosis given abnormal LFT's and low plts, hitesh albumin) 7. Chronic Macrocytic anemia rule out B12 folate deficiency ; no hx of etoh abuse 8. Pseudo hypocalcemia with adjusted calcium of 11.3 9. Hypoalbuminemia 10. Chronic Paroxismal A fib HPI / Hospital Course: Mr. Nugent was transferred to ICU this morning with acute resp failure 2? bilat COVID pneumonia w ARDS and right pneumothorax. The patient is an 80 yo generally health man with h/o PAfib and HTN. He was admitted to [facility] on 05/04 with COVID pneumonia. Notably, labs since then are strongly suggestive that the patient had cirrhosis. The patient?s oxygen requirements elvie and up until early this morn he was on HFNC + NRBFM. His Sat dropped early this morning. A CXR at 0132 was read as showing a trace right pneumothorax, so we were asked to see him. On initial eval by JOHN Jimenez, the patient had no complaints, sat was 84% w RR 18. A couple of hours later, his Sat deteriorated and the patient developed resp distress. He was tx down to ICU and required urgent intubation, following which the patient?s Sat deteriorated dramatically and CXR showed bilat PTXs. Dr. Wilcox from the ED placed a left chest tube, and I placed a right Raymond pigtail thoracostomy. Sats were in the 60?s for quite some time and there was residual bilat PTX, but after both chest tubes were placed on sxn, both PTXs resolved fully and the Sat elvie into the 80?s on 95% FiO2/w 5cm PEEP. The underlying pulmonary parenchyma showed bilat very severe ARDS. Dr Yan spoke with both of the patient?s children by telephone: Hamzah Medrano ([phone]) and Sharmila ([phone]). I discussed the events of this morning and expressed the unfortunate reality that their father?s survival probability was likely no higher than 1-2%, if that. They both indicated to him, separately, that he never would have wanted this (all the above), and that he would never wanted to have life support or CPR. He changed his status to DNR. Over the morning, he required escalating doses of Levophed and was not making urine. Se Yan spoke with Hamzah and Sharmila again in the early afternoon. They made the decision to proceed with comfort measures only and to withdraw critical care management. Hamzah came in at 3pm. Dr Yan spoke with him further and he spent time in the room w his father. Supportive measures were discontinued after 4pm, the endotracheal tube was removed, and the patient very shortly thereafter at 1620. Consult to Infectious Diseases Routine Consulting Provider: Kae Putnam Reason for consultation: Evaluate the need of Remdisivir. Hypoxia in Covid19. DS: Diagnosis Discharge Diagnosis (1) COVID-19: Status: Acute (2) Paroxysmal atrial fibrillation: Status: Acute (3) HTN (hypertension): Status: Acute DS: Medications Discharge Medications Home Medications: Home Medications Medication Instructions Recorded Confirmed aspirin 81 mg tablet,delayed 81 mg PO DAILY 12/30/19 05/04/20 release levothyroxine 50 mcg tablet 50 mcg PO DAILY 12/30/19 05/04/20 Previous Rx's Medication Instructions Recorded amiodarone 200 mg tablet 100 mg PO DAILY #20 tab 01/05/20 lisinopril 5 mg tablet 5 mg PO DAILY #30 tab 01/05/20 DS: Summary Time Spent with Patient Time attestation: Total time spent providing and/or coordinating discharge services: Discharge coordination time: Greater than 30 minutes Physical Exam Vital Signs: Vital Signs: Last Vital Signs Temp 98.1 F 05/09/20 16:00 Pulse 70 05/09/20 16:00 Resp 17 05/09/20 16:00 BP 89/43 L 05/09/20 16:00 Pulse Ox 89 L 05/09/20 16:00 Body Mass Index 28.3 DS: Data Data Completed and Pending Labs on day of discharge: Laboratory Results - last 24 hr 05/09/20 05/09/20 05/09/20 01:55 06:36 06:36 WBC RBC Hgb Hct MCV MCH MCHC RDW Plt Count MPV Immature Gran % (Auto) Neut % (Auto) Lymph % (Auto) [place] % (Auto) Eos % (Auto) Baso % (Auto) Lymph # (Auto) [place] # (Auto) Eos # (Auto) Baso # (Auto) Abs Immat Gran (auto) Absolute Neuts (auto) Absolute Nucleated RBC Nucleated RBC % (auto) Smear Tech's Comments PT INR D-Dimer Cancelled O2 Saturation 88.0 ABG pH at Pt Temp 7.53 H ABG pCO2 at Pt Temp 30 L ABG pO2 at Pt Temp 58 L ABG HCO3 25 ABG Base Excess (Actual) 3.5 VBG pH VBG pCO2 VBG pO2 VBG HCO3 VBG O2 Saturation VBG Base Excess Sodium Potassium Chloride Carbon Dioxide Anion Gap BUN Creatinine Estim Creat Clear Calc Estimated GFR Random Glucose Lactic Acid Lactic Acid Fup @ 2Hr Calcium Phosphorus Magnesium Ferritin Total Bilirubin 5.8 H Direct Bilirubin 2.2 H AST 53 H ALT 33 Alkaline Phosphatase 96 Troponin I High Sens C-Reactive Protein B-Natriuretic Peptide Total Protein 5.8 L Albumin 2.5 L Procalcitonin 05/09/20 05/09/20 05/09/20 06:36 06:36 06:36 WBC 18.2 H RBC 3.61 L Hgb 12.3 L Hct 37.9 L MCV 105.0 H MCH 34.1 H MCHC 32.5 RDW 15.9 Plt Count 183 D MPV 11.3 Immature Gran % (Auto) 2.5 H Neut % (Auto) 86.0 H Lymph % (Auto) 3.0 L [place] % (Auto) 8.3 Eos % (Auto) 0.0 Baso % (Auto) 0.2 Lymph # (Auto) 0.5 L [place] # (Auto) 1.5 H Eos # (Auto) 0.0 Baso # (Auto) 0.0 Abs Immat Gran (auto) 0.45 H Absolute Neuts (auto) 15.7 H Absolute Nucleated RBC 0.020 H Nucleated RBC % (auto) 0.1 Smear Tech's Comments VERIFIED PT INR D-Dimer O2 Saturation ABG pH at Pt Temp ABG pCO2 at Pt Temp ABG pO2 at Pt Temp ABG HCO3 ABG Base Excess (Actual) VBG pH VBG pCO2 VBG pO2 VBG HCO3 VBG O2 Saturation VBG Base Excess Sodium Cancelled Potassium Cancelled Chloride Cancelled Carbon Dioxide Cancelled Anion Gap Cancelled BUN Cancelled Creatinine Cancelled Estim Creat Clear Calc Cancelled Estimated GFR Cancelled Random Glucose Cancelled Lactic Acid Lactic Acid Fup @ 2Hr Calcium Cancelled Phosphorus Magnesium Ferritin Cancelled Total Bilirubin Direct Bilirubin AST ALT Alkaline Phosphatase Troponin I High Sens C-Reactive Protein B-Natriuretic Peptide Total Protein Albumin Procalcitonin Cancelled 05/09/20 05/09/20 05/09/20 06:36 06:36 06:36 WBC RBC Hgb Hct MCV MCH MCHC RDW Plt Count MPV Immature Gran % (Auto) Neut % (Auto) Lymph % (Auto) [place] % (Auto) Eos % (Auto) Baso % (Auto) Lymph # (Auto) [place] # (Auto) Eos # (Auto) Baso # (Auto) Abs Immat Gran (auto) Absolute Neuts (auto) Absolute Nucleated RBC Nucleated RBC % (auto) Smear Tech's Comments PT INR D-Dimer 3056 O2 Saturation ABG pH at Pt Temp ABG pCO2 at Pt Temp ABG pO2 at Pt Temp ABG HCO3 ABG Base Excess (Actual) VBG pH VBG pCO2 VBG pO2 VBG HCO3 VBG O2 Saturation VBG Base Excess Sodium 136 Potassium 3.7 Chloride 104 Carbon Dioxide 20 L Anion Gap 16 BUN 28 H Creatinine 0.79 Estim Creat Clear Calc 75.1 Estimated GFR > 60 Random Glucose 145 H D Lactic Acid 6.0 H* Lactic Acid Fup @ 2Hr Calcium 7.6 L Phosphorus 4.4 Magnesium 2.4 Ferritin 723 H Total Bilirubin Direct Bilirubin AST ALT Alkaline Phosphatase Troponin I High Sens C-Reactive Protein 1.13 H B-Natriuretic Peptide Total Protein Albumin Procalcitonin 05/09/20 05/09/20 05/09/20 06:36 06:37 06:49 WBC RBC Hgb Hct MCV MCH MCHC RDW Plt Count MPV Immature Gran % (Auto) Neut % (Auto) Lymph % (Auto) [place] % (Auto) Eos % (Auto) Baso % (Auto) Lymph # (Auto) [place] # (Auto) Eos # (Auto) Baso # (Auto) Abs Immat Gran (auto) Absolute Neuts (auto) Absolute Nucleated RBC Nucleated RBC % (auto) Smear Tech's Comments PT INR D-Dimer O2 Saturation ABG pH at Pt Temp ABG pCO2 at Pt Temp ABG pO2 at Pt Temp ABG HCO3 ABG Base Excess (Actual) VBG pH 7.19 L* VBG pCO2 47 VBG pO2 54 VBG HCO3 18 L VBG O2 Saturation 67.0 VBG Base Excess -9.2 Sodium Potassium Chloride Carbon Dioxide Anion Gap BUN Creatinine Estim Creat Clear Calc Estimated GFR Random Glucose Lactic Acid Lactic Acid Fup @ 2Hr Calcium Phosphorus Magnesium Ferritin Total Bilirubin Direct Bilirubin AST ALT Alkaline Phosphatase Troponin I High Sens 148.0 H D C-Reactive Protein B-Natriuretic Peptide 286 H Total Protein Albumin Procalcitonin 0.05 05/09/20 05/09/20 05/09/20 10:02 10:06 10:06 WBC RBC Hgb Hct MCV MCH MCHC RDW Plt Count MPV Immature Gran % (Auto) Neut % (Auto) Lymph % (Auto) [place] % (Auto) Eos % (Auto) Baso % (Auto) Lymph # (Auto) [place] # (Auto) Eos # (Auto) Baso # (Auto) Abs Immat Gran (auto) Absolute Neuts (auto) Absolute Nucleated RBC Nucleated RBC % (auto) Smear Tech's Comments PT 28.3 H D INR 2.4 H D-Dimer O2 Saturation ABG pH at Pt Temp ABG pCO2 at Pt Temp ABG pO2 at Pt Temp ABG HCO3 ABG Base Excess (Actual) VBG pH VBG pCO2 VBG pO2 VBG HCO3 VBG O2 Saturation VBG Base Excess Sodium Potassium Chloride Carbon Dioxide Anion Gap BUN Creatinine Estim Creat Clear Calc Estimated GFR Random Glucose Lactic Acid 5.8 H* Lactic Acid Fup @ 2Hr Cancelled Calcium Phosphorus Magnesium Ferritin Total Bilirubin Direct Bilirubin AST ALT Alkaline Phosphatase Troponin I High Sens C-Reactive Protein B-Natriuretic Peptide Total Protein Albumin Procalcitonin 05/09/20 05/09/20 10:06 10:11 WBC RBC Hgb Hct MCV MCH MCHC RDW Plt Count MPV Immature Gran % (Auto) Neut % (Auto) Lymph % (Auto) [place] % (Auto) Eos % (Auto) Baso % (Auto) Lymph # (Auto) [place] # (Auto) Eos # (Auto) Baso # (Auto) Abs Immat Gran (auto) Absolute Neuts (auto) Absolute Nucleated RBC Nucleated RBC % (auto) Smear Tech's Comments PT INR D-Dimer O2 Saturation ABG pH at Pt Temp ABG pCO2 at Pt Temp ABG pO2 at Pt Temp ABG HCO3 ABG Base Excess (Actual) VBG pH 7.22 L VBG pCO2 42 VBG pO2 58 VBG HCO3 17 L VBG O2 Saturation 78.0 VBG Base Excess -9.5 Sodium Potassium Chloride Carbon Dioxide Anion Gap BUN Creatinine Estim Creat Clear Calc Estimated GFR Random Glucose Lactic Acid Lactic Acid Fup @ 2Hr Calcium Phosphorus Magnesium Ferritin Total Bilirubin Direct Bilirubin AST ALT Alkaline Phosphatase Troponin I High Sens 879.0 H D C-Reactive Protein B-Natriuretic Peptide Total Protein Albumin Procalcitonin Preliminary micro results at discharge 05/05/20 13:42 Blood Culture - Preliminary Blood - Venous No growth after 48 hours. 05/05/20 13:44 Blood Culture - Preliminary Blood - Venous No growth after 48 hours. Discharge Plan Discharge Date/Time: 05/09/20 16:20 Patient Disposition: Referrals: Maxi Huynh MD [Primary Care Provider] - Discharge Medications: No Action amiodarone 200 mg tablet 100 mg PO DAILY Qty: 20 RF: 5 lisinopril 5 mg tablet 5 mg PO DAILY Qty: 30 RF: 5 levothyroxine 50 mcg tablet 50 mcg PO DAILY RF: 0 aspirin [Adult Low Dose Aspirin] 81 mg tablet,delayed release (DR/EC) 81 mg PO DAILY RF: 0 Discharge Date/Time: 05/09/20 18:13
== END 2020-05-09 18:13 | disposition expired | DRG 208 ==
LOC: HO.ED 09:14 → HO.IMC 15:18 → HO.ICU 05-09 04:27
PROVIDERS: Internal Medicine; Physician Assistant Medical; Admitting Provider Student in an Organized Health Care Education/Training Program; Emergency Provider Emergency Medicine Emergency Medical Services; PCP Internal Medicine; Visit Provider Anesthesiology
DX: U07.1 COVID-19 (principal); J80 Acute respiratory distress syndrome; J12.82 Pneumonia due to coronavirus disease 2019; J93.9 Pneumothorax, unspecified; N17.9 Acute kidney failure, unspecified; R33.9 Retention of urine, unspecified; K66.8 Other specified disorders of peritoneum; D69.6 Thrombocytopenia, unspecified; D70.9 Neutropenia, unspecified; E88.09 Other disorders of plasma-protein metabolism, not elsewhere classified; I48.0 Paroxysmal atrial fibrillation; E03.9 Hypothyroidism, unspecified; I10 Essential (primary) hypertension; Z79.82 Long term (current) use of aspirin; Z79.890 Hormone replacement therapy; Z79.899 Other long term (current) drug therapy
CPT/HCPCS: 0241U; 36415; 36600; 71045; 74018; 80048; 80053; 80076; 82728; 83605; 83615; 83735; 83880; 84100; 84145; 84484; 85025; 85027; 85379; 85610; 86140; 87040; 87147; 87205; 93005; 94002; 94003; 96374; 99285; 99291; C1758; J0330; J0696; J1100; J1650; J2270; J2930; J3010; J3490